=== PATIENT | male | born 1960 | race Caucasian/White ===

== ENCOUNTER 2021-05-21 11:00 | Outpatient (REF) | payer OTHER, SELFPAY ==
[2021-05-21 11:53] LABS: Binax Internal Control QC Valid; Binax Now Covid-19 Ag Negative (Negative)
== END 2021-05-21 11:01 | disposition home or self-care (01) ==
LOC: HO.HMGCLDS 11:00
PROVIDERS: Visit Provider Physician Assistant Medical
DX: Z13.89 Encounter for screening for other disorder (principal)

== ENCOUNTER 2022-04-13 18:16 | Outpatient (REF) | payer OTHER, SELFPAY ==
[2022-04-13 20:10] LABS: Influenza A PCR NEGATIVE (Negative); Influenza B PCR NEGATIVE (Negative); Resp Syncy Virus RNA Qual PCR NEGATIVE (Negative); SARS COV2 PCR INHOUSE NEGATIVE (Negative)
== END 2022-04-13 18:17 | disposition home or self-care (01) ==
LOC: HO.LNP 18:16
PROVIDERS: Visit Provider Internal Medicine
DX: J06.9 Acute upper respiratory infection, unspecified (principal); Z20.822 Contact with and (suspected) exposure to COVID-19
CPT/HCPCS: 0241U; U0003; U0005

== ENCOUNTER 2022-06-09 11:17 | Outpatient (REF) | payer OTHER, SELFPAY ==
[2022-06-09 12:38] LABS: Influenza A PCR NEGATIVE (Negative); Influenza B PCR NEGATIVE (Negative); Resp Syncy Virus RNA Qual PCR NEGATIVE (Negative); SARS COV2 PCR INHOUSE NEGATIVE (Negative)
== END 2022-06-09 11:18 | disposition home or self-care (01) ==
LOC: HO.LNP 11:17
PROVIDERS: Visit Provider Internal Medicine
DX: R43.9 Unspecified disturbances of smell and taste (principal); Z20.822 Contact with and (suspected) exposure to COVID-19
CPT/HCPCS: 0241U

== ENCOUNTER 2022-11-18 05:54 | Emergency (ER) | payer OTHER, SELFPAY ==
--- NOTE | ~2022-11-18 | XR_ITS ---
EXAMINATION: XR CHEST CLINICAL INFORMATION: Chest pain COMPARISON: Chest x-rays of 07/20/2018 TECHNIQUE: 2 views of the chest were obtained. FINDINGS: Cardiomediastinal silhouette is stable and normal. Lungs are symmetrically well expanded. No focal consolidation, changes of congestion is seen. No pneumothorax. Changes of diffuse idiopathic skeletal hyperostosis are seen in the spine. XR/XR chest 2V IMPRESSION: No acute pulmonary process.
[2022-11-18 06:00] VITALS: BP 155/83; PULSE 97; RESP 18; TEMP 36.3; O2SAT 97; BMI 36.9
--- NOTE | 2022-11-18 06:05 | ECG_ITS ---
Test Reason : CHEST PAIN Blood Pressure : / mmHG Vent. Rate : 074 BPM Atrial Rate : 074 BPM P-R Int : 178 ms QRS Dur : 086 ms QT Int : 368 ms P-R-T Axes : 036 071 040 degrees QTc Int : 408 ms Normal sinus rhythm Normal ECG No previous ECGs available Referred By: Generic ED Physician Electronically Signed By:MINDI MCKENNA MD
[2022-11-18 06:32] LABS: MANUAL DIFF FLAG NO
[2022-11-18 06:34] LABS: Basophils Percent Auto 0.4 % (0-2); Eosinophils Percent Auto 0.8 % (0-4); Hemoglobin 15.8 g/dl (14.0-18.0); Imm Gran Abs Auto 0.02 X10*3/uL (0.00-0.03); Imm Gran Pct Auto 0.4 % (0.0-0.4); Lymphocytes Absolute Auto 1.7 X10*3/uL (1.2-4.9); Lymphocytes Percent Auto 34.5 % (20-40); Mean Corpuscular HGB Conc 34.3 g/dl (31.0-36.0); Mean Corpuscular Hemoglobin 29.6 pg (27.0-33.0); Mean Corpuscular Volume 86.1 fL (80.0-98.0); Mean Platelet Volume 8.5 fL (9.4-12.4); Monocytes Absolute Auto 0.3 X10*3/uL (0.1-1.2); Monocytes Percent Auto 6.9 % (2-11); Neutrophils Absolute Auto 2.8 x10*3/uL (2.0-8.3); Platelet Count 203 X10*3/uL (160-400); Red Blood Count 5.34 X10*6/uL (4.60-5.80); Red Cell Distribution Width 13.2 % (11.0-16.0)
--- NOTE | 2022-11-18 06:39 | ED.CHESTPAIN ---
HPI - Chest Pain General Chief Complaint: Chest Pain Stated Complaint: migraine Time Seen by Provider: 11/18/22 06:35 Source: patient Mode of arrival: ambulatory Limitations: no limitations History of Present Illness HPI narrative: Patient is a 62 year old assigned male at with a history of pre-diabetes presenting to the emergency department today with right anterior chest pain and feeling generally unwell. Patient states that for the last day he has had right sided chest pain and has felt generally unwell. Patient denies any dizziness, lightheadedness, abdominal pain, nausea, vomiting, fever, chills, blurry vision, double vision, loss of vision, difficulty breathing, shortness of breath, back pain, night sweats, pain with urination, increased urinary frequency, increased urinary urgency, blood in his urine or stool, syncope or a near syncopal episode, recent trauma or falls, bowel incontinence, bladder incontinence, bowel retention, bladder retention, or any other complaints at this time. MD complaint: chest pain Onset (ago): day(s) (1) Pain radiation: none Severity: mild Pain scale (0-10): 2 Relieving factors: nothing Exacerbating factors: nothing Treatment prior to arrival: none Related Data Home Medications Medication Instructions Recorded Confirmed zinc acetate 25 mg (zinc) capsule 50 mg PO DAILY 06/09/22 Previous Rx's Medication Instructions Recorded oseltamivir 75 mg capsule (Tamiflu) 75 mg PO BID 5 days #10 caps 06/09/22 naproxen 500 mg tablet 500 mg PO BID PRN pain 14 days #30 09/18/22 tabs Allergies Allergy/AdvReac Type Severity Reaction Status Date / Time No Known Allergies Allergy Verified 09/18/22 10:12 Review of Systems Constitutional: Constitutional: Reports no additional constitutional complaints, Denies chills, Denies fever(s) and Denies night sweats Eyes: Eyes: Reports no additional eye complaints, Denies blurry vision, Denies change in vision, Denies diplopia, Denies eye discharge, Denies loss of vision and Denies eye pain ENT: Denies dizziness Cardiovascular: Cardiovascular: Reports no additional cardiovascular complaints, Reports chest pain, Denies lightheadedness, Denies Loss of Consciousness and Denies dyspnea Respiratory: Respiratory: Reports no additional respiratory complaints and Denies dyspnea Gastrointestinal: Gastrointestinal: Reports no additional gastrointestinal complaints, Denies abdominal pain, Denies melena, Denies hematochezia, Denies change in bowel habits and Denies change in stool character Genitourinary: Genitourinary: Reports no additional male genitourinary complaints, Denies hematuria, Denies oliguria, Denies difficulty urinating, Denies dysuria, Denies urinary frequency, Denies urinary hesitancy, Denies urinary incontinence and Denies urinary urgency Musculoskeletal: Musculoskeletal: Reports no additional musculoskeletal complaints, Denies numbness and Denies tingling Neurologic: Denies dizziness, Denies loss of vision, Denies numbness and Denies tingling Psychiatric: Psychiatric: Reports no additional psychiatric complaints Endocrine: Endocrine: Reports no additional endocrine complaints Hematologic/Lymphatic: Hematologic/Lymphatic: Reports no additional hematologic/lymphatic complaints Allergic/Immunologic: Allergic/Immunologic: Reports no additional allergic/immunologic complaints PMFSH Past Medical History Attestation statement: The following information was validated with the patient. Source: old records reviewed and nursing notes reviewed Social History Social History Smoked in Last 30 Days: No Advance Directives: No Advance Directives Information Provided: Yes Physical Exam Vital Signs: Vital Signs: Last Vital Signs Temp 98.3 F 11/18/22 06:57 Pulse 70 11/18/22 06:57 Resp 16 11/18/22 06:57 BP 141/84 H 11/18/22 06:57 Pulse Ox 95 11/18/22 06:57 O2 Del Method Room Air 11/18/22 06:57 BMI result Body Mass Index 36.9 Const: General: cooperative, no acute distress, alert and awake Nutritional Appearance: well nourished Orientation/consciousness: patient oriented x3 Limitations: no limitations HEENT: Head: Yes normal to inspection and Yes atraumatic Ears: hearing grossly normal bilaterally and external ears normal General nose exam: Normal external nose present, no nasal discharge noted and no epistaxis Face and sinus: Yes normal facial exam, No abrasion and No laceration Mouth: Normal oral and palatal mucosa present, no drooling and no muffled voice Eyes: General: appearance normal, both eyes and all related structures Periorbital: periorbital findings normal Eyelids: Yes eyelids normal Conjunctivae: conjunctivae normal Pupils: Equal, round and reactive pupils present EOM: EOMs intact bilaterally Neck: Neck: Yes normal visual inspection, Yes full ROM and Yes no lymphadenopathy Chest: Chest palpation & inspection: normal inspection of the chest Resp: Effort & Inspection: normal respiratory effort and able to speak in complete sentences Auscultation: clear to auscultation bilaterally Cardio: Rate: regular rate Rhythm: regular rhythm GI: Inspection: Yes normal to inspection Palpation (GI): Soft to palpation, not firm, nontender and no guarding Neuro: General: patient oriented x3 and moves all extremities Cranial nerves: Yes Equal, round and reactive pupils present Cognition (Neuro): normal cognition Motor exam (neuro): 5/5 motor strength present throughout Sensory Exam: Normal double simultaneous stimulation for sensation Coordination: [id number] test normal Extrem: General: Yes normal to inspection, Yes full ROM and Yes capillary refill normal Psych: Appearance: grossly normal Mental Status: mental status grossly normal Affect: normal affect Attitude: cooperative Thought process: Normal thought process present Thought content: Normal thought content present Insight: Good insight present (Psych) Medications Administered Discontinued Medications Generic Name Dose Route Start Last Admin Trade Name Freq PRN Reason Stop Dose Admin Sodium Chloride 1,000 mls @ 999 mls/hr 11/18/22 07:15 11/18/22 07:59 Ns IV 11/18/22 08:15 999 mls/hr .Q1H1M CORY Administration Medical Decision Making Medical Decision Making [facility] Narrative: Patient is a 62 year old assigned male at with a history of pre-diabetes presenting to the emergency department today with right sided chest wall pain. Patient's physical exam was unremarkable. Patient's blood work showed a mildly elevated lipase of 94. The rest of the patient's labs were grossly normal. Patient's EKG was unremarkable. Patient's chest x-ray showed no acute process. I explained my physical exam findings as well as all test results to the patient. I answered all questions asked by the patient. Patient received IV fluids while in the department which he stated helped his symptoms significantly. I stressed the importance of the patient taking his medication as prescribed. I stressed the importance of the patient following up with his primary care provider. I stressed the importance of the patient returning to the emergency department immediately if his symptoms were to worsen or if he were to develop any dizziness, shortness of breath, difficulty breathing, chest pain, blurry vision, loss of vision, nausea, vomiting, abdominal pain, fever, chills, back pain, or any other complaints. Patient verbalized agreement and understanding with this treatment plan and discharge. Differential Diagnosis Differential Diagnoses: The differential diagnosis associated with the presentation includes NSTEMI STEMI Anxiety Pancreatitis GERD Admission/Observation Consideration of admission/observation: Escalation of care including admission/observation considered Patient would have been admitted to the hospital had his work up had any findings where hospital admission was appropriate and his clinical presentation warranted hospital admission. Lab Data [facility] Lab Attestation statement: I reviewed the patient's lab results. My interpretation of these lab results are in the [facility] portion of this chart. 11/18/22 06:27 11/18/22 06:27 Labs: Lab Results 11/18/22 11/18/22 11/18/22 Range/Units 06:27 06:27 06:27 WBC 5.0 (4.8-10.8) X10*3/uL RBC 5.34 (4.60-5.80) X10*6/uL Hgb 15.8 (14.0-18.0) g/dl Hct 46.0 (42.0-52.0) % MCV 86.1 (80.0-98.0) fL MCH 29.6 (27.0-33.0) pg MCHC 34.3 (31.0-36.0) g/dl RDW 13.2 (11.0-16.0) % Plt Count 203 (160-400) X10*3/uL MPV 8.5 L (9.4-12.4) fL Immature Gran % (Auto) 0.4 (0.0-0.4) % Neut % (Auto) 57.0 (45-73) % Lymph % (Auto) 34.5 (20-40) % [place] % (Auto) 6.9 (2-11) % Eos % (Auto) 0.8 (0-4) % Baso % (Auto) 0.4 (0-2) % Lymph # (Auto) 1.7 (1.2-4.9) X10*3/uL [place] # (Auto) 0.3 (0.1-1.2) X10*3/uL Eos # (Auto) 0.0 (0.0-0.4) X10*3/uL Baso # (Auto) 0.0 (0.0-0.2) X10*3/uL Abs Immat Gran (auto) 0.02 (0.00-0.03) X10*3/uL Absolute Neuts (auto) 2.8 (2.0-8.3) x10*3/uL Absolute Nucleated RBC 0.000 (0.0-0.012) X10*3/uL Nucleated RBC % (auto) 0.0 (0.0-0.2) /100WBC Sodium 136 (135-145) mmol/L Potassium 4.4 (3.3-5.1) mmol/L Chloride 105 (96-108) mmol/L Carbon Dioxide 25 (22-29) mmol/L Anion Gap 10 L (12-20) BUN 13 (9-16) mg/dL Creatinine 0.77 (0.5-1.4) mg/dL Estim Creat Clear Calc 121.1 Estimated GFR > 60 Random Glucose 188 H (60-115) mg/dL Calcium 9.2 (8.4-10.2) mg/dL Total Bilirubin 1.0 (0.0-1.0) mg/dL Direct Bilirubin 0.2 (0.0-0.5) mg/dL AST 15 (5-37) U/L ALT 24 (0-40) U/L Alkaline Phosphatase 63 (39-117) U/L Troponin I High Sens < 2.7 (<3.5-35.0) ng/L Total Protein 6.9 (6.5-8.0) g/dL Albumin 4.2 (3.5-5.0) g/dL Lipase 94 H (8-78) U/L Independent Interpretation I performed an independent interpretation of an: EKG and Plain X-Ray Interpretation: My interpretation is in agreement with the radiologist's impression of this imaging study. EXAMINATION: XR CHEST CLINICAL INFORMATION: Chest pain COMPARISON: Chest x-rays of 07/20/2018 TECHNIQUE: 2 views of the chest were obtained. FINDINGS: Cardiomediastinal silhouette is stable and normal. Lungs are symmetrically well expanded. No focal consolidation, changes of congestion is seen. No pneumothorax. Changes of diffuse idiopathic skeletal hyperostosis are seen in the spine. XR/XR chest 2V IMPRESSION: No acute pulmonary process. Dictated By: Richard Daniels MD Signed By: Electronically signed by Richard Daniels MD 11/18/22 0757 Vent. Rate: 074 BPM ? ? Atrial Rate: 074 BPM P-R Int : 178 ms? ? QRS Dur: 086 ms QT Int: 368 ms ? ? ? P-R-T Axes: 036 071 040 degrees QTc Int: 408 ms ? Normal sinus rhythm Normal ECG No previous ECGs available DD/ 0610 Radiology Impression Discussion of test interpretation with radiology: I have reviewed the radiologist's reading. Discharge Plan Discharge Clinical Impression: Pancreatitis, Atypical chest pain Patient Disposition: Home, Self-Care Instructions: Chest Pain (DC), Pancreatitis (ED) Additional Instructions: Follow up with your primary care provider. Return to the emergency department immediately if your symptoms worsen or if you develop any dizziness, shortness of breath, difficulty breathing, chest pain, blurry vision, loss of vision, nausea, vomiting, abdominal pain, fever, chills, back pain, or any other complaints. Prescriptions: No Action zinc acetate 25 mg (zinc) capsule 50 mg PO DAILY oseltamivir [Tamiflu] 75 mg capsule 75 mg PO BID 5 Days Qty: 10 0RF naproxen 500 mg tablet 500 mg PO BID PRN (Reason: pain) 14 Days Qty: 30 0RF Referrals: [facility] Family Medicine [Provider Group] (Call to establish and follow up with a primary care provider. If you already have a primary care provider, please follow up with them.) [facility] Primary Care, James [Provider Group] (Call to establish and follow up with a primary care provider. If you already have a primary care provider, please follow up with them.) [facility] Primary Care,Kae [Provider Group] (Call to establish and follow up with a primary care provider. If you already have a primary care provider, please follow up with them.) Stand Alone Forms: Work/School Release Print Language: Albanian
[2022-11-18 06:46] LABS: Anion Gap 10 (12-20); Blood Urea Nitrogen 13 mg/dL (9-16); Calcium 9.2 mg/dL (8.4-10.2); Carbon Dioxide 25 mmol/L (22-29); Chloride 105 mmol/L (96-108); Creatinine Clr Calc Pharmacy 121.1; Estimated Glomerular Filt Rate > 60; Glucose Random 188 mg/dL (60-115); Potassium 4.4 mmol/L (3.3-5.1); Sodium 136 mmol/L (135-145)
[2022-11-18 06:57] VITALS: BP 141/84; PULSE 70; RESP 16; TEMP 36.8; O2SAT 95
[2022-11-18 07:03] LABS: Alanine Aminotransferase 24 U/L (0-40); Albumin Level 4.2 g/dL (3.5-5.0); Alkaline Phosphatase 63 U/L (39-117); Aspartate Amino Transferase 15 U/L (5-37); Bilirubin Direct 0.2 mg/dL (0.0-0.5); Lipase 94 U/L (8-78); Total Protein 6.9 g/dL (6.5-8.0); Troponin-I High Sensitivity < 2.7 ng/L (<3.5-35.0)
--- NOTE | 2022-11-18 07:04 | PC.NURSE ---
pt a&ox3, respirations equal and unlabored with clear bilateral lung sounds. normal sinus on tele. pt reporting right sided pressure in the chest that is radiating into his right upper back that has been going on for two days. pt reports some current stressors in his household.
[2022-11-18] MEDS: 0.9 % Sodium Chloride 1,000 ML 999 ML IV (07:59)
== END 2022-11-18 08:45 | disposition home or self-care (01) ==
PROVIDERS: Physician Assistant Medical; Emergency Provider Emergency Medicine Emergency Medical Services
DX: K85.90 Acute pancreatitis without necrosis or infection, unspecified (principal); R07.89 Other chest pain; R73.03 Prediabetes; Z79.899 Other long term (current) drug therapy
CPT/HCPCS: 36415; 71046; 80048; 80076; 83690; 84484; 85025; 93005; 99283; 99285

== ENCOUNTER → 2022-11-18 06:05 | Outpatient (BNV) | payer OTHER, SELFPAY | PROVIDERS: Emergency Provider Emergency Medicine Emergency Medical Services; Visit Provider Internal Medicine Cardiovascular Disease | DX: R07.9 Chest pain, unspecified (principal) | CPT/HCPCS: 93010 ==

== ENCOUNTER 2023-02-07 11:36 | Outpatient (AMB) | payer OTHER, SELFPAY ==
[2023-02-07 12:24] VITALS: BP 136/74; PULSE 80; TEMP 36.8; O2SAT 97; BMI 35.4
--- NOTE | 2023-02-07 12:24 | MHC.OFFWIV ---
Intake Vital Signs 02/07/23 12:24 Height 5 ft 8 in Weight 105.687 kg BMI 35.4 BP 136/74 Blood Pressure Location Lt brachial Position Sitting Pulse 80 Pulse Source Pulse Oximeter Temp 98.2 F Temp Source Temporal Artery Scan Pulse Oximetry (%) 97 Intake Visit Reasons: EP Cold Symptoms (masked) Intake Note: pt is here for c/o chest congestion, cough, ear pain, fatigue Patient Tobacco Use Status: Never used Tobacco Allergies No Known Allergies Allergy (Verified 02/07/23 12:25) Do you need a note to return to daycare/school/sports/work: Yes HPI EP Cold Symptoms (masked) HPI Details Patient presents on day 4 of sudden onset chills, body aches, congestion, cough, sore throat. He denies chest pain, shortness of breath, GI symptoms. He took a home COVID test today which was negative. He denies sick contacts at home. [facility] Social History Patient Tobacco Use Status: Never used Tobacco Review of Systems Const Reports as per HPI and Reports no additional complaints Eyes Reports no additional complaints ENT Reports no additional complaints and Reports as per HPI Card Reports as per HPI and Reports no additional complaints Resp Reports as per HPI and Reports no additional complaints GI Reports as per HPI and Reports no additional complaints Musc Reports no additional complaints and Reports as per HPI Neuro Reports no additional complaints and Reports as per HPI Physical Exam Vital Signs: Last Vital Signs Temp 98.2 F 02/07/23 12:24 Pulse 80 02/07/23 12:24 BP 136/74 02/07/23 12:24 Pulse Ox 97 02/07/23 12:24 BMI result Body Mass Index 35.4 Const General: cooperative, comfortable, no acute distress and tired appearing Orientation/consciousness: patient oriented x3 HEENT Ears: TM's normal bilaterally General nose exam: Abnormal mucous membranes and turbinates present erythematous and Nasal discharge present mucoid Face and sinus: Yes sinuses nontender Mouth: Normal oral and palatal mucosa present Throat: Yes uvula midline, Yes posterior oropharynx abnormal (Erythema) and Yes tonsils absent Neck Neck: Yes no lymphadenopathy Resp Effort & Inspection: normal respiratory effort Auscultation: clear to auscultation bilaterally Cardio Rate: regular rate Rhythm: regular rhythm Heart sounds: S1 normal heart sound present and S2 normal heart sound present Neuro General: patient oriented x3 Extrem General: Yes no pedal edema Results AMB Rapid Strep AMB Rapid Strep Negative Last Edit by Jey Bermudez CMA on 02/07/23 13:06 Assessment & Plan Assessment & Plan (1) Viral syndrome: Code(s): B34.9 - Viral infection, unspecified Plan: Advised patient symptoms are likely viral. I have collected a viral swab out will report results of helpful note to me for 2 days can return swab symptoms resolved. Reviewed self-care and symptomatic treatment. As advised viral symptoms can last 7-10 days return to clinic if symptoms worsen or do not improve. Orders: Orders SARS-CoV2/FLU/RSV Today B34.9 - Viral infection, unspecified AMB Rapid Strep Screen Today Z13.9 - Encounter for screening, unspecified Coding Level of Care Code Est Pt Level 3 (98764) Diagnoses Viral syndrome B34.9
== END 2023-02-07 13:26 | disposition home or self-care (01) ==
PROVIDERS: Visit Provider Physician Assistant
DX: J02.9 Acute pharyngitis, unspecified (principal); B34.9 Viral infection, unspecified
CPT/HCPCS: 87880; 99213

== ENCOUNTER 2023-02-07 13:05 | Outpatient (REF) | payer OTHER, SELFPAY ==
[2023-02-07 18:01] LABS: Influenza A PCR NEGATIVE (Negative); Influenza B PCR NEGATIVE (Negative); Resp Syncy Virus RNA Qual PCR NEGATIVE (Negative); SARS COV2 PCR INHOUSE NEGATIVE (Negative)
== END 2023-02-07 13:06 | disposition home or self-care (01) ==
LOC: HO.LAB 13:05
PROVIDERS: Visit Provider Physician Assistant
DX: Z20.822 Contact with and (suspected) exposure to COVID-19 (principal)
CPT/HCPCS: 0241U

== ENCOUNTER 2023-07-27 10:39 | Outpatient (AMB) | payer OTHER, SELFPAY ==
[2023-07-27 10:52] VITALS: BP 130/80; PULSE 103; TEMP 36.8; O2SAT 95; BMI 36.2
--- NOTE | 2023-07-27 10:52 | MHC.OFFWIV ---
Intake Vital Signs 07/27/23 10:52 Height 5 ft 8 in Weight 238 lb BMI 36.2 BP 130/80 Blood Pressure Location Lt brachial Position Sitting Pulse 103 H Pulse Source Pulse Oximeter Temp 98.2 F Temp Source Temporal Artery Scan Pulse Oximetry (%) 95 Oxygen Delivery Method Room Air Intake Visit Reasons: EP sore throat ears cough congestion (lobby) Intake Note: pt is here today for sore throat ear cough congestion started tuesday Patient Tobacco Use Status: Never used Tobacco Allergies No Known Allergies Allergy (Verified 07/27/23 10:56) Do you need a note to return to daycare/school/sports/work: Yes HPI HPI Comments History of Present Illness Details 63 y/o male patient who presents to walk in clinic with c/o cough, chest congestion, headaches, nasal congestion since Tuesday. Pt has been taking OTC medications with some relief. Denies fevers, chills, nausea or vomiting. Denies any recent sick contacts. [facility] Social History Patient Tobacco Use Status: Never used Tobacco Review of Systems Const All systems reviewed & are unremarkable except as noted in HPI and below Physical Exam Vital Signs: Last Vital Signs Temp 98.2 F 07/27/23 10:52 Pulse 103 H 07/27/23 10:52 BP 130/80 07/27/23 10:52 Pulse Ox 95 07/27/23 10:52 Oxygen Delivery Method Room Air 07/27/23 10:52 BMI result Body Mass Index 36.2 Const General: comfortable and no acute distress Nutritional Appearance: obese Orientation/consciousness: patient oriented x3 HEENT Head: Yes normocephalic Ears: external ears normal and TM's normal bilaterally General nose exam: Abnormal mucous membranes and turbinates present boggy and erythematous Face and sinus: Yes sinuses nontender Throat: Yes posterior oropharynx normal Resp Effort & Inspection: normal respiratory effort and able to speak in complete sentences Auscultation: clear to auscultation bilaterally, no crackles, no rales, no rhonchi and no wheezes Cardio Rate: regular rate Rhythm: regular rhythm Neuro General: patient oriented x3 and moves all extremities Psych Speech and movement: Normal speech and movement present Results AMB Rapid Strep AMB Rapid Strep Negative Last Edit by Jacoby Perkins on 07/27/23 11:21 Results Reviewed Results Reviewed: Laboratory Last Values Strep Scn Rapid Clinic Negative 07/27/23 11:21 Assessment & Plan Assessment & Plan (1) Upper respiratory tract infection: Code(s): J06.9 - Acute upper respiratory infection, unspecified Qualifiers: URI type: unspecified viral URI Qualified Code(s): J06.9 - Acute upper respiratory infection, unspecified Plan: - Rest and hydrate well with warm fluids - Acetaminophen for pain relief - OTC cold remedies. Orders: Orders SARS-CoV2/FLU/RSV Today J06.9 - Acute upper respiratory infection, unspecified Coding Level of Care Code Est Pt Level 3 (27023) Diagnoses Viral upper respiratory tract infection J06.9 URI type: unspecified viral URI Time Spent (min) 15
== END 2023-07-27 13:31 | disposition home or self-care (01) ==
PROVIDERS: Visit Provider Nurse Practitioner Family
DX: J06.9 Acute upper respiratory infection, unspecified (principal)
CPT/HCPCS: 99213

== ENCOUNTER 2023-07-27 11:06 | Outpatient (REF) | payer OTHER, SELFPAY ==
[2023-07-27 16:38] LABS: Influenza A PCR NEGATIVE (Negative); Influenza B PCR NEGATIVE (Negative); Resp Syncy Virus RNA Qual PCR NEGATIVE (Negative); SARS COV2 PCR INHOUSE NEGATIVE (Negative)
== END 2023-07-27 11:07 | disposition home or self-care (01) ==
LOC: HO.LAB 11:06
PROVIDERS: Visit Provider Nurse Practitioner Family
DX: Z11.52 Encounter for screening for COVID-19 (principal); Z20.822 Contact with and (suspected) exposure to COVID-19; J06.9 Acute upper respiratory infection, unspecified
CPT/HCPCS: 0241U

== ENCOUNTER 2024-03-21 14:11 | Outpatient (AMB) | payer OTHER, SELFPAY ==
[2024-03-21 14:21] VITALS: BP 122/80; PULSE 83; O2SAT 97; BMI 36.9
--- NOTE | 2024-03-21 14:21 | MHC.PC.OV ---
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 Pt is a diabetic, not currently on any medications. Due for A1C and microalbumin, will order. Denies polyuria, polydipsia, and neuropathy. Pt denies any signs and symptoms of hypoglycemia and does know how to correct it. Pt does not check his blood sugar at home. He does report tenderness to his bilat feet. He is seeing podiatry (arthritis). Pt c/o palpitations. He reports that these do not last long. Will do an EKG in office. Will also order echo and stress test. Denies chest pain, shortness of breath, and dizziness. refused vaccinations. [facility] Surgical History No pertinent past surgical history Family History Mother CHF (congestive heart failure) Father No problems noted. Son Substance abuse Social History Alcohol intake: never Patient Tobacco Use Status: Never used Tobacco Cognitive needs: No Hearing needs: No Vision needs: No Questionnaire PHQ-9 Over the last 2 weeks, how often have you been bothered by any of the following problems? 1. Little interest or pleasure in doing things: not at all 2. Feeling down, depressed, or hopeless: not at all 3. Trouble falling or staying asleep, or sleeping too much: not at all 4. Feeling tired or having little energy: not at all 5. Poor appetite or overeating: not at all 6. Feeling bad about yourself - or that you are a failure or have let yourself or your family down: not at all 7. Trouble concentrating on things, such as reading the newspaper or watching television: not at all 8. Moving or speaking so slowly that other people could have noticed. Or the opposite - being so fidgety or restless that you have been moving around a lot more than usual: not at all 9. Thoughts that you would be better off or of hurting yourself in some way: not at all Total score: 0 Depression Screening Interpretation: Negative Depression Screening Done: Yes 21913 - PHQ-9 Billing: Yes Source: Developed by Drs. Ray Abdi, Dena Mejia, Chacorta Ding and colleagues, with an educational hay from [employer]. Thrive Questionnaire Date Thrive assessed: 03/21/24 I am a: Patient What is your living situation today?: I have a steady place to live Within the past 12 months, did the food you bought not last and you didn't have the money to get more?: I choose not to answer this question Within the past 12 months, did you worry whether your food would run out before you got money to buy more?: Never true Do you have trouble paying for medicines?: No Do you have trouble getting transportation to medical appointments?: No Do you have trouble paying your heating and electricity bill?: No Do you have trouble taking care of your child, family member or friend?: No Do you have trouble with day-to-day activities such as bathing, preparing meals, shopping, managing finances, etc.?: No Are you currently unemployed and looking for a job?: No Are you interested in more education?: No Please select the resources that you would like help with: None Currently or been in a relationship where the following occur: No concerns reported THRIVE Score: 0 AUDIT C Alcohol Use Questionnaire (AUDIT-C) 1. How often do you have a drink containing alcohol?: Never 3. How often do you have six or more drinks on one occasion?: Never Total Score: 0 Score Reviewed/Action Taken: Yes MARY-7 AMB Questionnaire MARY-7 Date MARY - 7 assessed: 03/21/24 Feeling nervous, anxious, or on edge: 3 = Nearly every day Not being able to stop or control worryin = Not at all Worrying too much about different things: 0 = Not at all Trouble relaxin = Not at all Being so restless that it is hard to sit still: 0 = Not at all Becoming easily annoyed or irritable: 0 = Not at all Feeling afraid as if something awful might happen: 0 = Not at all Total MARY-7 score (0-4 normal; 5-9 mild; 10-14 moderate; 15-21 severe): 3 Source: Developed by Drs. Ray Abdi, Dena Mejia, Chacorta Ding and colleagues, with an educational hay from [employer]. MARY-7 Assessment Billing MARY-7 Assessment Tool: MARY-7 Assessment 49060 Review of Systems Const Reports as per HPI Physical exam (Primary Care) Vital Signs: Last Vital Signs Pulse 83 03/21/24 14:21 BP 122/80 03/21/24 14:21 Pulse Ox 97 03/21/24 14:21 BMI result Body Mass Index 36.9 Tobacco/Smoking Status: Tobacco use Status Tobacco use date assessed 03/21/24 03/21/24 14:26 Patient Tobacco Use Status Never used Tobacco 03/21/24 14:26 PHQ-9: PHQ-9 Score PHQ-9: Total score 0 03/21/24 14:37 Depression Screening Interpretation: Negative Thrive Assessment: Date of Thrive Assessment Date Thrive assessed 03/21/24 03/21/24 14:26 Currently or been in a relationship where the following occur: No concerns reported Const General: cooperative Nutritional Appearance: obese Orientation/consciousness: patient oriented x3 Resp Effort & Inspection: normal respiratory effort Auscultation: clear to auscultation bilaterally Cardio Rate: regular rate Rhythm: regular rhythm Heart sounds: S1 normal heart sound present and S2 normal heart sound present GI Other: small umbilical hernia Other: refused MELY Skin Other: macular slightly raised birthmark to posterior distal right calf, slightly raised lesion to proximal right calf, no tenderness with palpation Neuro General: patient oriented x3 Extrem Other: bilat feet: + sensation with use of monofilament, feet intact, hemosiderin staining to BLE Psych Appearance: grossly normal Mental Status: mental status grossly normal Speech and movement: Normal speech and movement present Affect: normal affect Attitude: cooperative Thought process: Normal thought process present Thought content: Normal thought content present Insight: Good insight present (Psych) Judgement: Good judgement present (Psych) Coding Level of Care Code New Pt Level 3 (40532) Diagnoses Diabetes E11.9 Screening for prostate cancer Z12.5 Vitamin D deficiency E55.9 Palpitations R00.2 Additional Codes MARY-7 Assessment Billing - MARY-7 Assessment Tool: MARY-7 Assessment 72308 ([id number]) PHQ-9 - 17607 - PHQ-9 Billing: Yes ([id number]) Assessment & Plan Assessment & Plan (1) Diabetes: Code(s): E11.9 - Type 2 diabetes mellitus without complications Category: Medical Plan: Labs ordered (2) Screening for prostate cancer: Code(s): Z12.5 - Encounter for screening for malignant neoplasm of prostate Category: Medical Plan: PSA ordered (3) Vitamin D deficiency: Code(s): E55.9 - Vitamin D deficiency, unspecified Category: Medical Plan: Vitamin D ordered (4) Palpitations: Code(s): R00.2 - Palpitations Category: Medical Plan: EKG done in office, echo and stress test ordered Plan The patient agreed to the use of a medical affairs specialist for this encounter. Scribed for SUSANA Roland by Lien Fabian medical affairs specialist, on 03/21/2024 at 14:35 EST. Orders: Orders UA CC w/rflx Micro + Cult Today E11.9 - Type 2 diabetes mellitus without complications Microalbumin, Random (w Creat) Today E11.9 - Type 2 diabetes mellitus without complications Vitamin D 25-OH Total Today E55.9 - Vitamin D deficiency, unspecified CA stress test Today R00.2 - Palpitations CA lexiscan stress w radha Today R00.2 - Palpitations Complete Blood Count Auto Diff Today E11.9 - Type 2 diabetes mellitus without complications Comprehensive [place]. Panel Fast Today E11.9 - Type 2 diabetes mellitus without complications TSH reflex Free T4 Today E11.9 - Type 2 diabetes mellitus without complications Lipid Panel Today E11.9 - Type 2 diabetes mellitus without complications Hemoglobin A1c Today E11.9 - Type 2 diabetes mellitus without complications Prostate Specific Antigen Scr Today Z12.5 - Encounter for screening for malignant neoplasm of prostate AMB EKG-In Office Today R00.2 - Palpitations CA echo transthoracic complete Today R00.2 - Palpitations
== END 2024-03-21 15:28 | disposition home or self-care (01) ==
PROVIDERS: Visit Provider Nurse Practitioner Family
DX: E11.9 Type 2 diabetes mellitus without complications (principal); Z12.5 Encounter for screening for malignant neoplasm of prostate; E55.9 Vitamin D deficiency, unspecified; R00.2 Palpitations

== ENCOUNTER → 2024-03-21 14:11 | Outpatient (BNVA) | payer OTHER, SELFPAY | PROVIDERS: Visit Provider Nurse Practitioner Family | DX: E11.9 Type 2 diabetes mellitus without complications (principal); E55.9 Vitamin D deficiency, unspecified; R00.2 Palpitations | CPT/HCPCS: 96127 ==

== ENCOUNTER 2024-03-24 07:03 | Outpatient (REF) | payer OTHER, SELFPAY ==
[2024-03-24 11:12] LABS: MANUAL DIFF FLAG NO
[2024-03-24 11:27] LABS: Basophils Percent Auto 0.6 % (0-2); Eosinophils Absolute Auto 0.1 X10*3/uL (0.0-0.4); Eosinophils Percent Auto 1.3 % (0-4); Hematocrit 47.6 % (42.0-52.0); Hemoglobin 16.3 g/dl (14.0-18.0); Imm Gran Abs Auto 0.01 X10*3/uL (0.00-0.03); Imm Gran Pct Auto 0.2 % (0.0-0.4); Lymphocytes Absolute Auto 2.1 X10*3/uL (1.2-4.9); Lymphocytes Percent Auto 43.4 % (20-40); Mean Corpuscular HGB Conc 34.2 g/dl (31.0-36.0); Mean Corpuscular Hemoglobin 29.7 pg (27.0-33.0); Mean Corpuscular Volume 86.9 fL (80.0-98.0); Mean Platelet Volume 9.1 fL (9.4-12.4); Monocytes Absolute Auto 0.4 X10*3/uL (0.1-1.2); Monocytes Percent Auto 7.6 % (2-11); Neutrophils Absolute Auto 2.2 x10*3/uL (2.0-8.3); Neutrophils Percent Auto 46.9 % (45-73); Platelet Count 229 X10*3/uL (160-400); Red Blood Count 5.48 X10*6/uL (4.60-5.80); Red Cell Distribution Width 13.1 % (11.0-16.0); White Blood Count 4.7 X10*3/uL (4.8-10.8)
[2024-03-24 11:33] LABS: Estimated Average Glucose 148 mg/dL; Hemoglobin A1C 215.4914 umol/L; Hemoglobin A1c % 6.8 % (<6.0); Total Hemoglobin (HGBA1C) 4210.1344 umol/L
[2024-03-24 11:45] LABS: Appearance Urine Cloudy; Color Urine Yellow; Glucose Urine UA Negative (Negative); Leukocyte Esterase Urine Negative (Negative); Nitrite Urine Negative (Negative); PH 5.5 (5.0-9.0); UMIC TRIGGER UACC YES; Urine Blood Negative (Negative); Urine Ketones Negative (Negative); Urine Protein 100 (2+) mg/dL (Neg-Trace)
[2024-03-24 11:48] LABS: Bacteria Urine None Seen (None Seen); Hyaline Casts Urine 0-2 /LPF (0-2); RBC Urine 0-2 /HPF (0-2); Squamous Epithelial Cell Urine 0-2 /HPF (0-2); WBC Urine 0-5 /HPF (0-5)
[2024-03-24 11:59] LABS: Prostate Specific Antigen Scr 3.59 ng/mL (<0.05-4.0)
[2024-03-24 12:19] LABS: Creatinine Urine 139.71 mg/dL; Microalbum/Creatinine Ratio Ur 262.6 ug/mg cr (<30)
[2024-03-24 12:20] LABS: Alanine Aminotransferase 36 U/L (0-40); Albumin Level 4.3 g/dL (3.5-5.0); Alkaline Phosphatase 61 U/L (39-117); Anion Gap 11 (12-20); Aspartate Amino Transferase 33 U/L (5-37); Bilirubin Total 1.1 mg/dL (0.0-1.0); Blood Urea Nitrogen 15 mg/dL (9-16); Calcium 9.4 mg/dL (8.4-10.2); Carbon Dioxide 26 mmol/L (22-29); Chloride 105 mmol/L (96-108); Cholesterol 214 mg/dL (<200); Estimated Glomerular Filt Rate > 60; Glucose Fasting 134 mg/dL (60-99); HDL Cholesterol 59 mg/dL (>40); LDL Cholesterol Calculated 121 mg/dL (<100); Potassium 4.3 mmol/L (3.3-5.1); Sodium 138 mmol/L (135-145); Total Protein 7.3 g/dL (6.5-8.0); Triglycerides 171 mg/dL (<150); Vitamin D 25-OH Total 37.5 ng/mL (>30)
== END 2024-03-24 07:04 | disposition home or self-care (01) ==
LOC: HO.HMGCLDS 07:03
PROVIDERS: PCP Nurse Practitioner Family; Visit Provider Nurse Practitioner Family
DX: E11.9 Type 2 diabetes mellitus without complications (principal); Z12.5 Encounter for screening for malignant neoplasm of prostate; E55.9 Vitamin D deficiency, unspecified
CPT/HCPCS: 36415; 80053; 80061; 81001; 82043; 82306; 82570; 83036; 84153; 84443; 85025

== ENCOUNTER → 2024-05-03 07:45 | Outpatient (REF) | payer OTHER, SELFPAY ==
--- NOTE | 2024-05-03 07:56 | CA_ITS ---
Transthoracic Echocardiogram Patient (Last, First, Middle): Brady Arzate J Gender: Male Date of : 1960 Age: 64 Procedure Date: 05/03/2024 Procedure Type: Transthoracic Echocardiogram Location: OP Height: 175.26 cm Weight: 108.86 kg BSA: 2.23 m2 Heart Rate: 96 bpm BP: 122 / 80 mmHg Performance Consultant: SB Referring MD: Atul Baldwin [facility] Catering Coordinator: Yovany Hernandez MD Symptoms: R00.2 - Palpitations Study Quality: Technically Difficult ECG Rhythm: Sinus Conclusions: - 1. Technically difficult study 2. Normal LV ejection fraction of 60 65% 3. Cardiac valvular Dopplers within normal limits Findings Procedure Information Contrast agent, definity, is being given per protocol without apparent complications. The quality of the study was technically difficult. The study quality is limited by patients body habitus and lung artifact. Left Ventricle Normal left ventricular size, thickness, and systolic function. The visually estimated ejection fraction is between 60-65%. Spectral Doppler is indicative of a normal filling pattern. Right Ventricle Normal right ventricular cavity size. Atria The left atrium is normal in size. Interatrial shunt cannot be excluded. The right atrium was not well visualized. Aortic Valve The aortic valve was not well visualized. There is no aortic valve stenosis. There is no aortic valve regurgitation. Mitral Valve The mitral valve was not well visualized. There is trace mitral valve regurgitation. There is no mitral valve stenosis. Tricuspid Valve The tricuspid valve was not well visualized. Great Vessels The pulmonary artery was not well visualized. There is no dilatation of the ascending aorta measuring 3.30 cm. Venous The inferior vena cava was not well visualized. Pericardium/Pleural The pericardium was not well visualized. Prior Study Comparison No prior study available for comparison. Measurements 2D Linear Measurements IVSd: 1.17 0.6-0.9/0.6-1.0 cm LVIDd: 4.40 3.9-5.3/4.2-5.9 cm LVIDd Index: 1.97 2.4-3.2/2.2-3.1 cm/m2 LVIDs: 2.64 2.0-3.6 cm LVPWd: 1.12 0.7-1.1 cm LA Diam: 3.60 2.7-3.8/3.0-4.0 cm LAIDs Index: 1.61 1.5-2.3 cm/m2 LV Mass: 224.06 67-162/88-224 g LV Mass Index: 100.48 43-95/49-115 g/m2 LVOT Diam: 2.30 3.0+(-)1.3 cm 2D Systolic Function EF 4C: 63.90 >55% EF 2C: 63.60 >55% EF BiP: 63.70 >55% Mitral Valve MV Pk E: 0.63 MV PK A: 0.60 MV Decel Time: 152.00 E/A: 1.10 E'Lateral: 6.42 E'Medial: 5.11 E/E' Med: 12.40 E/E' Lat: 9.90 PHT: 45.00 MVA PHT: 4.89 Decel Wheeler: 4.16 Aortic Valve AoV Pk Blayne: 1.10 AoV Pk Grad: 5.00 PHILLY: 3.33 LVOT LVOT Pk Blayne: 0.91 LVOT Mn Blayne: 0.61 LVOT VTI: 0.17 LVOT Pk Grad: 3.00 LVOT Mn Grad: 2.00 LVOT Diam: 2.30 LVOT Area: 4.15 Diastolic Function MV Pk E: 0.63 MV Pk A: 0.60 E/A: 1.10 E'Medial: 5.11 E/E' Med: 12.40 E' Laterial: 6.42 E/E' Lat: 9.90 Right Ventricle TAPSE (mm): 28.70 TVS' Blayne: 14.30 Tricuspid Valve RA Press: 3.00 Great Vessels Aorta Sinus of Valsalva: 2.80 2.0-3.5 cm Ao Asc: 3.30 2.1-3.4 cm Ao Arch: 2.90 Pulmonary Veins Pulm Vein S/D 1.20 Pulmonary Valve PV Pk Blayne: 1.38 Peak PV Grad: 8.00 Updated in Other Vendor System with Status of Final Yovany Hernandez MD electronically signed on 05/03/2024 3:36:00 PM with status of Final
== END ==
LOC: HO.CARD 07:45
PROVIDERS: PCP Nurse Practitioner Family; Visit Provider Nurse Practitioner Family
DX: R00.2 Palpitations (principal)
CPT/HCPCS: 93306; Q9957

== ENCOUNTER → 2024-05-03 07:56 | Outpatient (BNV) | payer OTHER, SELFPAY | PROVIDERS: PCP Nurse Practitioner Family; Visit Provider Internal Medicine Cardiovascular Disease | DX: R00.2 Palpitations (principal) | CPT/HCPCS: 93306 ==

== ENCOUNTER → 2024-06-28 07:46 | Outpatient (REF) | payer OTHER, SELFPAY ==
--- OUTSIDE RECORDS SUMMARY | 2024-06-28 07:49 | XMS_ITS | Patient Health Record ---
[facility] Address [address] [place] [address] Care Team Providers Care Production Counter Name Role Phone Jassi Molina MD Primary Care Provider Leonel Evans Unavailable [phone] Allergies Allergen (clinical drug ingredient) Drug/Non Drug Allergy documented on EMR Reaction Allergy Type Onset Date Status ibuprofen Advil Unknown Drug Allergy Active Aleve Unknown Drug Allergy Active Motrin Unknown Drug Allergy Active acetaminophen Tylenol Unknown Drug Allergy Act john aspirin Aspirin Unknown Drug Allergy Active Reason For Referral No Information Social History Tobacco Use: Social History Observation Description Date Details (start date - stop date) Light tobacco s moker NA - NA Tobacco Use/Smoking Question Answer Notes Are you a: light tobacco smoker Additional Findings: Tobacco Non-User Current no n-smoker Alcohol Screen Question Answer Notes Did you have a drink contain ing alcohol in the past year? Yes How often did you have a dri nk containing alcohol in the past year? 4 or more times a week (4 points) Points 4 Interpretation Positive Tobacco use other than smoking: Question Answer Notes Are you an other tobacco user? No Plan Of Treatment Pending Test Test Name Order Date X ray : Foot, left 3V 10/07/2022 X ray : Foot, right 3V 10/07/2022 X ray : Foot, right 3V 11/13/2021 Insurance Providers Payer Name Payer Address Payer Phone Subscriber Number Group Number Insured Name Patient Relationship to Insured Coverage Start Date Coverage End Date [employer] [address] [place] [address] [id number] Brady Arzate Self - patient is the insured Medical (General) History Medical History History ICD Code Arthritis Surgical History Surgery Date(Month/Year) L lymph node removed 11/12/21 arm surgery 2021
--- NOTE | 2024-06-28 07:50 | CA_ITS ---
Acquisition Time: 2024-06-28 08:14:17 Total Exercise Time: 00:05:41 Test Indications: Palpitations Medications: Protocol: RONNY Max HR: 146 BPM 92% of Pred: 157 BPM Max BP: 190/88 mmHG Max Work Load: 7.0 METS Exercise Stress Test with exercise 5 mins 41 secs of Ronny Protocol, achieving 91% MPHR, with reports of mild SOB, no chest discomfort, without any arrythmias, with normotensive response to exercise. Without any EKG changes meeting criteria for ischemia. In recovery, breathing returned to baseline. Nuclear images pending. Test reviewed with Dr. Evans. Referred By: Atul Baldwin Electronically Signed By: Rickie To
== END ==
LOC: HO.CARD 07:46
PROVIDERS: PCP Nurse Practitioner Family; Visit Provider Nurse Practitioner Family
DX: R00.2 Palpitations (principal)
CPT/HCPCS: 78452; 93017; A9500

== ENCOUNTER → 2024-06-28 07:50 | Outpatient (BNV) | payer OTHER, SELFPAY | PROVIDERS: PCP Nurse Practitioner Family | DX: R06.02 Shortness of breath (principal) | CPT/HCPCS: 78452; 93016; 93018 ==

== ENCOUNTER 2024-07-07 07:06 | Outpatient (REF) | payer OTHER, SELFPAY ==
--- OUTSIDE RECORDS SUMMARY | 2024-07-07 07:08 | XMS_ITS | Patient Health Record ---
Author Organization [facility] Address [address] [place] [address] Care Team Providers Care Shell Worker Name Role Phone Jassi Molina MD Primary Care Provider Leonel Evans Unavailable [phone] Allergies Allergen (clinical drug ingredient) Drug/Non Drug [...] Date Coverage End Date [employer] [address] [place] [address] [id number] Brady Arzate Self - patient is the insured Medical (General) History Medical History History ICD Code Arthritis Surgical History Surgery Date(Month/Year) L lymph node removed 11/12/21 arm surgery 2021
[2024-07-07 12:27] LABS: Alanine Aminotransferase 42 U/L (0-40); Albumin Level 4.3 g/dL (3.5-5.0); Alkaline Phosphatase 82 U/L (39-117); Anion Gap 14 (12-20); Aspartate Amino Transferase 33 U/L (5-37); Bilirubin Total 1.3 mg/dL (0.0-1.0); Blood Urea Nitrogen 14 mg/dL (9-16); Calcium 9.3 mg/dL (8.4-10.2); Carbon Dioxide 24 mmol/L (22-29); Chloride 106 mmol/L (96-108); Cholesterol 143 mg/dL (<200); Estimated Glomerular Filt Rate > 60; Glucose Fasting 132 mg/dL (60-99); HDL Cholesterol 51 mg/dL (>40); LDL Cholesterol Calculated 70 mg/dL (<100); Potassium 4.3 mmol/L (3.3-5.1); Sodium 140 mmol/L (135-145); Total Protein 7.8 g/dL (6.5-8.0); Triglycerides 112 mg/dL (<150)
== END 2024-07-07 07:07 | disposition home or self-care (01) ==
LOC: HO.HMGCLDS 07:06
PROVIDERS: PCP Nurse Practitioner Family; Visit Provider Nurse Practitioner Family
DX: E11.9 Type 2 diabetes mellitus without complications (principal)
CPT/HCPCS: 36415; 80053; 80061

== ENCOUNTER 2024-07-18 15:30 | Outpatient (AMB) | payer OTHER, SELFPAY ==
[2024-07-18 15:32] VITALS: BP 130/80; PULSE 90; TEMP 36.6; O2SAT 96; BMI 36.8
--- NOTE | 2024-07-18 15:32 | A.OFFPC_ITS ---
Vital Signs 07/18/24 15:32 Height 5 ft 8 in Weight 242 lb BMI 36.8 BP 130/80 Blood Pressure Location Lt brachial Position Sitting Pulse 90 Pulse Source Pulse Oximeter Temp 97.8 F Temp Source Oral Pulse Oximetry (%) 96 Oxygen Delivery Method Room Air Intake Visit Reasons: 4m follow up Intake Note: pt is here for 4 mon f.up Data Services Developer Required: No Accompanied by: Self / Same As Patient Allergies No Known Allergies Allergy (Verified 07/18/24 15:32) Medication List - Last Reconciled 07/18/24 by ESTHER Polk- atorvastatin 10 mg PO BEDTIME losartan 25 mg PO DAILY Tobacco use date assessed: 07/18/24 Dental Screening Dental Screen Date: 07/18/24 Did you have a dental visit in the last 12 months?: Yes Did you have a dental problem in the last 6 months where you did not have access to dental care?: No Was dental information given to patient?: Patient has dentist HPI 4m follow up HPI Details Chief Complaint Intermittent peripheral neuropathy associated with Type 2 Diabetes Mellitus. History of Present Illness The patient is a 64-year-old male presenting with concerns about the management of Type 2 Diabetes Mellitus and associated diabetic peripheral neuropathy. Intermittent neuropathy is reported despite showing good sensation by mono filament test, and the patient is seeing a precision lens grinder apprentice for comprehensive care, including arthritis management in his feet. The patient's diabetes management has included diet modification and use of s tatins, with evidence of cholesterol reduction and an A1c of 7.2% today. He previously noted microalbuminuria, for which nephrology referral is planned for further evaluation. Laboratory findings recently revealed an ALT elevation, and as such, an abdominal ultrasound was ordered. For symptomatic management of neuropathy and arthritis, capsaicin cream use was advised. Additionally, he reports completion of eye examinations with current findings noted during the visit. NOTE: pt smokes a pack a week, at the most, since age 36. Social History - No specific social history details wer e discussed. Health Maintenance - Laboratory tests showed elevated ALT, warranting an abdominal ultrasound. - Continued management of hyperlipidemia with statins and diet. - Eye examination is current. - Monitoring of microalbuminuria is note d; nephrology referral suggested. - Diabetes management efforts through di etary adjustments and medication compliance. Review of Systems - Musculoskeletal: Reports foot arthriti s. - Neurological: Reports intermittent francisco ropathy. Physical Exam General: Cooperative, healthy appearing, comfortable, no acute distress and well developed Orientation: Patient oriented x3 Limitations: No limitations Head: Normal to inspection Ears: Hearing grossly normal bilaterally Nose: Normal external nose present Face and sinus: Normal facial exam Eyes: Appearance normal, both eyes and all related structures Neck: Normal visual inspection and Yes full ROM Respiratory: Normal respiratory effort and able to speak in complete sentences. Clear to auscultation bilaterally Cardiovascular: Regular rate and rhythm. Normal S1 and S2 GI: Normal to inspection. Soft to palpation and nontender Skin: No rashes or lesions noted Neuro: Patient oriented x3 Extremities: Normal to inspection Results - Labs: Slight elevation in ALT noted. - Hemoglobin A1c: 7.2%. - Imaging: Abdominal ultrasound pending. Plan Type 2 Diabetes Mellitus management will include commencing Jardiance, alongside current dietary measures and statin use for hyperlipidemia, with documented cholesterol reduction. An abdominal ultrasound is scheduled to address elevated ALT levels, and a nephrology referral will be made due to his history of microalbuminuria. Neuropathic and arthritic symptoms will be managed with capsaicin cream application. We will continue to promote lifestyle changes to a ddress morbid obesity, and his eye exam remains current. Discussion Notes I discussed with the patient the initiation of Jardiance for diabetes management and outlined the next steps regarding his elevated ALT, including conducting an abdominal ultrasound. We reviewed his positive response to statins as part of his hyperlipidemia management. I explained the potential benefits of capsaicin cream in alleviating neuropathic and arthritic discomfort. Future referral to nephrology for microalbuminuria was agreed upon. We also discussed the importance of weight management and diet control in addressing his comorbid conditions. Patient Instructions - Start Jardiance as prescribed for diab etes management. - Continue current diet and statin use t o manage cholesterol levels. - Attend the scheduled abdominal ultraso und to assess liver health. - Follow up with the nephrology referral for further workup of microalbuminuria. - Apply capsaicin cream for neuropathy a nd arthritis pain as directed. - Continue regular eye examinations and follow diabetic eye care advice. - Focus on weight management strategies to address obesity. [facility] Surgical History No pertinent past surgical history Family History Mother CHF (congestive heart failure) Father No problems noted. Son Substance abuse Social History Housing: Other Alcohol intake: never Patient Tobacco Use Status: Never used Tobacco e-Cigarette/Vaping Use: Never Used Current occupational exposures/hazards: No Cognitive needs: No Hearing needs: No Vision needs: No Questionnaire PHQ-9 Over the last 2 weeks, how often have you been bothered by any of the following problems? 1. Little interest or pleasure in doing things: not at all 2. Feeling down, depressed, or hopeless: not at all 3. Trouble falling or staying asleep, or sleeping too much: not at all 4. Feeling tired or having little energy: not at all 5. Poor appetite or overeating: not at all 6. Feeling bad about yourself - or that you are a failure or have let yourself or your family down: not at all 7. Trouble concentrating on things, such as reading the newspaper or watching television: not at all 8. Moving or speaking so slowly that other people could have noticed. Or the opposite - being so fidgety or restless that you have been moving around a lot more than usual: not at all 9. Thoughts that you would be better off or of hurting yourself in some way: not at all Total score: 0 Depression Screening Interpretation: Negative Depression Screening Done: Yes 80998 - PHQ-9 Billing: Yes Source: Developed by Drs. Ray Abdi, Dena Mejia, Chacorta Ding and colleagues, with an educational hay from [employer]. Thrive Questionnaire Date Thrive assessed: 07/18/24 I am a: Patient What is your living situation today?: I have a steady place to live Within the past 12 months, did the food you bought not last and you didn't have the money to get more?: I choose not to answer this question Within the past 12 months, did you worry whether your food would run out before you got money to buy more?: Never true Do you have trouble paying for medicines?: No Do you have trouble getting transportation to medical appointments?: No Do you have trouble paying your heating and electricity bill?: No Do you have trouble taking care of your child, family member or friend?: No Do you have trouble with day-to-day activities such as bathing, preparing meals, shopping, managing finances, etc.?: No Are you currently unemployed and looking for a job?: No Are you interested in more education?: No Please select the resources that you would like help with: None Currently or been in a relationship where the following occur: No concerns reported THRIVE Score: 0 AUDIT C Alcohol Use Questionnaire (AUDIT-C) 1. How often do you have a drink containing alcohol?: Never 3. How often do you have six or more drinks on one occasion?: Never Total Score: 0 Score Reviewed/Action Taken: Yes MARY-7 AMB Questionnaire MARY-7 Date MARY - 7 assessed: 07/18/24 Feeling nervous, anxious, or on edge: 3 = Nearly every day Not being able to stop or control worryin = Not at all Worrying too much about different things: 0 = Not at all Trouble relaxin = Not at all Being so restless that it is hard to sit still: 0 = Not at all Becoming easily annoyed or irritable: 0 = Not at all Feeling afraid as if something awful might happen: 0 = Not at all Total MARY-7 score (0-4 normal; 5-9 mild; 10-14 moderate; 15-21 severe): 3 Source: Developed by Drs. Ray Abdi, Dena Mejia, Chacorta Ding and colleagues, with an educational hay from [employer]. MARY-7 Assessment Billing MRAY-7 Assessment Tool: MARY-7 Assessment 28794 Physical exam (Primary Care) Vital Signs: Last Vital Signs Temp 97.8 F 07/18/24 15:32 Pulse 90 07/18/24 15:32 BP 130/80 07/18/24 15:32 Pulse Ox 96 07/18/24 15:32 Oxygen Delivery Method Room Air 07/18/24 15:32 BMI result Body Mass Index 36.8 Tobacco/Smoking Status: Tobacco use Status Tobacco use date assessed 07/18/24 07/18/24 15:35 Patient Tobacco Use Status Never used Tobacco 07/18/24 15:35 e-Cigarette/Vaping Use Never Used 07/18/24 15:35 PHQ-9: PHQ-9 Score PHQ-9: Total score 0 07/18/24 15:35 Depression Screening Interpretation: Negative Thrive Assessment: Date of Thrive Assessment Date Thrive assessed 07/18/24 07/18/24 15:35 Currently or been in a relationship where the following occur: No concerns reported Results AMB Hemoglobin A1c AMB Hemoglobin A1c 7.2 % Last Edit by Jey Bermudez CMA on 07/18/24 16: 05 Coding Level of Care Code Est Pt Level 3 (75622) Diagnoses Elevated liver enzymes R74.8 Microalbuminuria R80.9 Diabetes E11.9 Additional Codes MARY-7 Assessment Billing - MARY-7 Assessment Tool: MARY-7 Assessment 14993 ([id number]) PHQ-9 - 57425 - PHQ-9 Billing: Yes ([id number]) Assessment & Plan Assessment & Plan (1) Elevated liver enzymes: Code(s): R74.8 - Abnormal levels of other serum enzymes Category: Medical (2) Microalbuminuria: Code(s): R80.9 - Proteinuria, unspecified Category: Medical (3) Diabetes: Code(s): E11.9 - Type 2 diabetes mellitus without complications Category: Medical Plan . Orders: Orders US abdomen complete Today R74.8 - Abnormal levels of other serum enzymes AMB Hemoglobin A1c Today Z13.9 - Encounter for screening, unspecified Referrals Nephrology Referral R80.9 - Proteinuria, unspecified Medications: New empagliflozin (Jardiance) 10 mg PO DAILY 30 tabs 2RF
--- OUTSIDE RECORDS SUMMARY | 2024-07-18 18:13 | XMS_ITS | Patient Health Record ---
[facility] Address [address] [place] [address] Care Team Providers Care Review Appraiser Name Role Phone Jassi Molina MD Primary Care Provider Leonel Evans Unavailable [phone] Allergies Allergen (clinical drug ingredient) Drug/Non Drug [...] Date Coverage End Date [employer] [address] [address] [place] [address] [id number] Brady Arzate Self - patient is the insured Medical (General) History Medical History History ICD Code Arthritis Surgical History Surgery Date(Month/Year) L lymph node removed 11/12/21 arm surgery 2021
== END 2024-07-18 16:21 | disposition home or self-care (01) ==
LOC: HO.HMCC 15:30
PROVIDERS: Visit Provider Nurse Practitioner Family
DX: R74.8 Abnormal levels of other serum enzymes (principal); R80.9 Proteinuria, unspecified; E11.9 Type 2 diabetes mellitus without complications; Z13.9 Encounter for screening, unspecified

== ENCOUNTER → 2024-07-18 15:30 | Outpatient (BNVA) | payer OTHER, SELFPAY | PROVIDERS: Visit Provider Nurse Practitioner Family | DX: E11.42 Type 2 diabetes mellitus with diabetic polyneuropathy (principal); R74.8 Abnormal levels of other serum enzymes; R80.9 Proteinuria, unspecified | CPT/HCPCS: 83036; 96127 ==

== ENCOUNTER 2024-08-15 08:45 | Outpatient (REF) | payer OTHER, SELFPAY ==
--- NOTE | ~2024-08-15 | US_ITS ---
EXAMINATION: US ABDOMEN HISTORY: R74.8 - Abnormal levels of other serum enzymes TECHNIQUE: Real-time grayscale ultrasound imaging of the abdomen was performed and images were reviewed. COMPARISON: There are no prior studies for comparison. FINDINGS: Liver: The right lobe of the liver measures 16.8 cm in size. The left lobe of the liver measures 9.7 cm in size. The liver demonstrates increased echotexture, consistent with steatosis. No focal mass or intrahepatic biliary ductal dilatation is identified. There is normal hepatopedal flow in the portal vein. Gallbladder and biliary tree: The gallbladder is unremarkable, without evidence of calculi, wall thickening, or pericholecystic fluid. There is no sonographic Salamanca sign. The common bile duct is normal in caliber measuring 5 mm. Kidneys: The right kidney measures 12.5 cm in length. The left kidney measures 12.3 cm in length. The kidneys are unremarkable, without evidence of masses, hydronephrosis, or calculi. Pancreas: The pancreatic head, neck, and body are unremarkable. The pancreatic tail is obscured by bowel gas. Spleen: The spleen is normal in size and contour, measuring 10.0 cm in length. Abdominal aorta and inferior vena cava: The visualized portions of the abdominal aorta and inferior vena cava are normal in caliber. There is no free fluid in the abdomen. US/US abdomen complete IMPRESSION: Mild hepatomegaly and hepatic steatosis. Otherwise unremarkable abdominal ultrasound. Electronically signed by: Ray Phipps MD 08/15/2024 09:21 AM EDT
--- OUTSIDE RECORDS SUMMARY | 2024-08-15 09:05 | XMS_ITS | Patient Health Record ---
Author Organization [facility] Address [address] [place] [address] Care Team Providers Care Commercial Plumber Name Role Phone Jassi Molina MD Primary Care Provider Leonel Evans Unavailable [phone] Allergies Allergen (clinical drug ingredient) Drug/Non Drug [...] Date Coverage End Date [employer] [address] [address] [place] [address] [id number] Brady Arzate Self - patient is the insured Medical (General) History Medical History History ICD Code Arthritis Surgical History Surgery Date(Month/Year) L lymph node removed 11/12/21 arm surgery 2021
== END 2024-08-15 08:46 | disposition home or self-care (01) ==
LOC: HO.HMGCX 08:45
PROVIDERS: PCP Nurse Practitioner Family; Visit Provider Nurse Practitioner Family
DX: R74.8 Abnormal levels of other serum enzymes (principal)
CPT/HCPCS: 76700

== ENCOUNTER → 2024-08-15 08:48 | Outpatient (BNV) | payer OTHER, SELFPAY | PROVIDERS: PCP Nurse Practitioner Family; Visit Provider Radiology Diagnostic Radiology | DX: R16.0 Hepatomegaly, not elsewhere classified (principal); K76.0 Fatty (change of) liver, not elsewhere classified; R74.8 Abnormal levels of other serum enzymes | CPT/HCPCS: 76700 ==

== ENCOUNTER 2024-08-15 15:20 | Outpatient (AMB) | payer OTHER, SELFPAY ==
--- NOTE | 2024-08-15 15:38 | HO.NEPHOV ---
Vital Signs 08/15/24 15:40 Height 5 ft 8 in Weight 239 lb 8 oz BMI 36.4 BP 114/70 Blood Pressure Location Rt brachial Position Sitting Pulse 79 Pulse Source Pulse Oximeter Pulse Oximetry (%) 94 Oxygen Delivery Method Room Air Intake Visit Reasons: INP: Proteinuria-LVM Bobbin Inspector Required: No Accompanied by: Self / Same As Patient Allergies No Known Allergies Allergy (Verified 08/15/24 15:40) HPI Comments Details: I had the pleasure of seeing Brady who is a 64 year old male in consultation for proteinuria. He has Type 2 Diabetes Mellitus and associated diabetic peripheral neuropathy as well proteinuria but denied retinopathy. He had been trying diet modification , metformin and use of statins, with evidence of cholesterol reduction but still having A1c of 7.2. He has been having diarrhea from metformin for which it has been discontinued and SGLT2 i has been initiated which he has not started taking yet. He has no edema, dysuria, hematuria, froth or foam in the urine. He smokes a pack a week, at the most, since age 36. He denies any vascular complaints. He is not very active and has not lost any weight. He denies CAD, CVA, CHF, PAD, carotid stenosis or EDGARDO. His renal function has been normal. He does not check his BP at home. He denied any cancers. He claims to be compliant with medications including losartan. He denies using excessive NSAID's, new bone or back pain. He has no epistaxis, joint swelling, photosensitivity, sensori neural deafness. His renal function is normal. [facility] Surgical History No pertinent past surgical history Family History Mother CHF (congestive heart failure) Father No problems noted. Son Substance abuse Social History Housing: Other Alcohol intake: never Patient Tobacco Use Status: Never used Tobacco e-Cigarette/Vaping Use: Never Used Current occupational exposures/hazards: No Cognitive needs: No Hearing needs: No Vision needs: No Review of Systems Const All systems reviewed & are unremarkable except as noted in HPI and below Physical Exam Vital Signs: Last Vital Signs Pulse 79 08/15/24 15:40 BP 114/70 08/15/24 15:40 Pulse Ox 94 08/15/24 15:40 Oxygen Delivery Method Room Air 08/15/24 15:40 BMI result Body Mass Index 36.4 Const General: comfortable and no acute distress Orientation/consciousness: patient oriented x3 HEENT Head: Yes normocephalic Mouth: Normal oral and palatal mucosa present Eyes EOM: EOMs intact bilaterally Neck Neck: Yes supple Resp Auscultation: clear to auscultation bilaterally Cardio Jugular venous distension: no JVD Rate: regular rate GI Palpation (GI): Soft to palpation Auscultation: normal bowel sounds General: Yes no CVA tenderness Back/Spine/Pelvis Back: no CVA tenderness Skin General skin exam: no rashes or lesions noted Neuro General: patient oriented x3 and moves all extremities Extrem General: Yes no pedal edema Results Reviewed Nephrology Results: Hgb 16.3 g/dl (14.0-18.0) 03/24/24 WBC 4.7 X10*3/uL (4.8-10.8) L 03/24/24 Plt Count 229 X10*3/uL (160-400) 03/24/24 Sodium 140 mmol/L (135-145) 07/07/24 Potassium 4.3 mmol/L (3.3-5.1) 07/07/24 Chloride 106 mmol/L (96-108) 07/07/24 Carbon Dioxide 24 mmol/L (22-29) 07/07/24 BUN 14 mg/dL (9-16) 07/07/24 Creatinine 0.81 mg/dL (0.5-1.4) 07/07/24 Calcium 9.3 mg/dL (8.4-10.2) 07/07/24 Urine Protein 100 (2+) mg/dL (Neg-Trace) H 03/24/24 Urine Creatinine 139.71 mg/dL 03/24/24 Assessment & Plan Assessment & Plan (1) Microalbuminuria: Code(s): R80.9 - Proteinuria, unspecified Category: Medical Plan Luc proteinuria is from diabetic nephropathy. He is also at risk for secondary FSGS from high BMI. He needs to lose weight. He has been on losartan 25 mg daily which I plan to increase to 25 mg bid and maximize it based on evolving data. His BP needs to be maintained at goal. He has been initiated on SGLT2 i which he has not started yet. He should maintain good hydration and avoid NSAID's. I shall investigate in extensive detail if his proteinuria worsens. All these have been discussed in detail. Answered all questions. Follow up given Orders: Orders Protein Creatinine Ratio, Ur 3 Months R80.9 - Proteinuria, unspecified Coding Level of Care Code New Pt Level 4 (23332) Diagnoses Microalbuminuria R80.9
[2024-08-15 15:40] VITALS: BP 114/70; PULSE 79; O2SAT 94; BMI 36.4
== END 2024-08-15 16:17 | disposition home or self-care (01) ==
LOC: HO.HKA 15:20
PROVIDERS: PCP Nurse Practitioner Family; Visit Provider Internal Medicine Nephrology
DX: R80.9 Proteinuria, unspecified (principal)
CPT/HCPCS: 99204

== ENCOUNTER 2024-09-13 11:01 | Outpatient (AMB) | payer OTHER, SELFPAY ==
--- NOTE | 2024-09-13 11:47 | MHC.OFFWIV ---
Intake Vital Signs 09/13/24 11:48 Weight 239 lb BP 122/80 Blood Pressure Location Rt brachial Position Sitting Pulse 102 H Pulse Source Pulse Oximeter Pulse Oximetry (%) 96 Oxygen Delivery Method Room Air Intake Visit Reasons: EP lower back pain Intake Note: Patient here for lower back pain that radiates down the left leg Patient Tobacco Use Status: Never used Tobacco Allergies No Known Allergies Allergy (Verified 09/13/24 11:47) HPI HPI Comments History of Present Illness Details 64 y/o Male patient who presents to the walk in clinic with c/o Lower back pain that radiates down left lower extremity. He was seen at a local yesterday and prescribed Prednisone and Flexeril. Pt reports no improvement, he still has really bad pain. Pain worse with walking, standing and bending over. Denies injury or trauma. Denies Bowel or urinary symptoms. Pt wondering if he can have Cortisone injections to his back. [facility] Medical History (Updated 09/13/24 @ 12:43 by Ene Roth NP) Lumbago with sciatica Surgical History No pertinent past surgical history Family History Mother CHF (congestive heart failure) Father No problems noted. Son Substance abuse Social History Housing: Other Alcohol intake: never Patient Tobacco Use Status: Never used Tobacco e-Cigarette/Vaping Use: Never Used Current occupational exposures/hazards: No Cognitive needs: No Hearing needs: No Vision needs: No Review of Systems Const All systems reviewed & are unremarkable except as noted in HPI and below Physical Exam Vital Signs: Last Vital Signs Pulse 102 H 09/13/24 11:48 BP 122/80 09/13/24 11:48 Pulse Ox 96 09/13/24 11:48 Oxygen Delivery Method Room Air 09/13/24 11:48 Const General: no acute distress Nutritional Appearance: obese morbidly obese Orientation/consciousness: patient oriented x3 GI Inspection: Yes Abdominal panniculus present General: Yes no CVA tenderness Back/Spine/Pelvis Back: no CVA tenderness and back tenderness Neuro General: patient oriented x3, gait normal and moves all extremities Psych Speech and movement: Normal speech and movement present Assessment & Plan Assessment & Plan (1) Lumbago with sciatica: Code(s): M54.40 - Lumbago with sciatica, unspecified side Qualifiers: Chronicity: acute Back pain laterality: left Sciatica laterality: sciatica of left side Qualified Code(s): M54.42 - Lumbago with sciatica, left side Plan: Continue taking medications prescribed from UC. Placed referral to Pain management. NSAIDs and Acetaminophen for pain relief. Rest Ice/Hot. Orders: Referrals Pain Management Referral M54.42 - Lumbago with sciatica, left side Coding Level of Care Code Est Pt Level 4 (34577) Diagnoses Acute left-sided low back pain with left-sided sciatica M54.42 Chronicity: acute Back pain laterality: left Sciatica laterality: sciatica of left side Time Spent (min) 20
[2024-09-13 11:48] VITALS: BP 122/80; PULSE 102; O2SAT 96
--- OUTSIDE RECORDS SUMMARY | 2024-09-13 12:33 | XMS_ITS | Patient Health Record ---
[facility] Address [address] [place] [address] Care Team Providers Care Outreach Liaison Name Role Phone Jassi Molina MD Primary Care Provider Leonel Evans Unavailable [phone] Allergies Allergen (clinical drug ingredient) Drug/Non Drug [...] Date Coverage End Date [employer] [address] [place] [address] [id number] Brady Arzate Self - patient is the insured Medical (General) History Medical History History ICD Code Arthritis Surgical History Surgery Date(Month/Year) L lymph node removed 11/12/21 arm surgery 2021
== END 2024-09-13 12:19 | disposition home or self-care (01) ==
PROVIDERS: PCP Nurse Practitioner Family; Visit Provider Nurse Practitioner Family
DX: M54.42 Lumbago with sciatica, left side (principal)

== ENCOUNTER → 2024-09-13 11:01 | Outpatient (BNVA) | payer OTHER, SELFPAY | PROVIDERS: PCP Nurse Practitioner Family; Visit Provider Nurse Practitioner Family ==

== ENCOUNTER 2024-10-27 09:21 | Outpatient (AMB) | payer OTHER, SELFPAY ==
--- OUTSIDE RECORDS SUMMARY | 2024-10-27 09:23 | XMS_ITS | Patient Health Record ---
Author [facility] Address [address] [place] [address] Care Team Providers Care Life Sciences Director Name Role Phone Jassi Molina MD Primary Care Provider Leonel Evans Unavailable [phone] Allergies Allergen (clinical drug ingredient) Drug/Non Drug [...] Date Coverage End Date [employer] [address] [place] [address] [id number] Brady Arzate Self - patient is the insured Medical (General) History Medical History History ICD Code Arthritis Surgical History Surgery Date(Month/Year) L lymph node removed 11/12/21 arm surgery 2021
--- NOTE | 2024-10-27 09:26 | AM.OFFWIN_ITS ---
Intake Vital Signs 10/27/24 09:27 Height 5 ft 8 in Weight 233 lb BMI 35.4 BP 110/70 Blood Pressure Location Lt brachial Position Sitting Respiration 15 Pulse 87 Pulse Source Pulse Oximeter Temp 98.0 F Temp Source Oral Pulse Oximetry (%) 97 Intake Visit Reasons: EP-Low Back pain Intake Note: Pt is here today c/o lower back pain on and off Patient Tobacco Use Status: Never used Tobacco Allergies No Known Allergies Allergy (Verified 10/27/24 09:31) HPI HPI Comments History of Present Illness Details Brady Arzate presents with ongoing back pain that originated in September 2024. The patient initially sought treatment at [facility] due to severe pain at work, where he was prescribed muscle relaxers and pain medication. The back pain has improved since the initial incident but continues to cause discomfort, particularly when lying down at night and attempting to get up. Mr. Arzate describes the pain as tightening up during these times. He is currently managing the pain with Advil and attempting to stretch as recommended, but still finds it necessary to get up in the middle of the night to stretch. The patient reports a history of a similar issue with his neck, which was diagnosed as a pinched nerve via MRI and successfully treated with a cortisone shot. He notes that his current back pain feels tight and has persisted for about a month since the initial injury. Mr. Arzate took a couple of days off work following the urgent care visit but has not yet consulted his primary care physician, Dr. Pollard, regarding this issue. In addition to his back pain, Mr. Arzate mentions having arthritis in his feet, which was also alleviated by the pain medication prescribed at [facility]. He expresses interest in trying muscle relaxers to potentially address his back pain. [facility] Medical History (Updated 09/13/24 @ 12:43 by Ene Roth NP) Lumbago with sciatica Surgical History No pertinent past surgical history Family History Mother CHF (congestive heart failure) Father No problems noted. Son Substance abuse Social History Housing: Other Alcohol intake: never Patient Tobacco Use Status: Never used Tobacco e-Cigarette/Vaping Use: Never Used Current occupational exposures/hazards: No Cognitive needs: No Hearing needs: No Vision needs: No Physical Exam Vital Signs: Last Vital Signs Temp 98.0 F 10/27/24 09:27 Pulse 87 10/27/24 09:27 Resp 15 10/27/24 09:27 BP 110/70 10/27/24 09:27 Pulse Ox 97 10/27/24 09:27 BMI result Body Mass Index 35.4 Const General: cooperative, healthy appearing, no acute distress and alert Orientation/consciousness: patient oriented x3 Limitations: no limitations HEENT Head: Yes normal to inspection Ears: hearing grossly normal bilaterally General nose exam: Normal external nose present Resp Effort & Inspection: normal respiratory effort and able to speak in complete sentences Cardio Rate: regular rate Skin General skin exam: no rashes or lesions noted Neuro General: patient oriented x3 Gait exam (Neuro): Normal gait present Extrem General: Yes normal to inspection Assessment & Plan Assessment & Plan (1) Lumbago with sciatica: Code(s): M54.40 - Lumbago with sciatica, unspecified side Qualifiers: Chronicity: acute Back pain laterality: left Sciatica laterality: sciatica of left side Qualified Code(s): M54.42 - Lumbago with sciatica, left side Plan: 1. Low Back Pain: - Pain began in September following injury, initially treated at [facility] - Improved but experiences tightness and pain when lying down and getting up at night - Pain persisted for about a month since initial injury - History of neck pain previously treated with cortisone injection for pinched nerve on MRI - Current symptoms suggest possible muscular issue - No red flag symptoms present Plan: - Prescribe Robaxin (methocarbamol) muscle relaxer - Patient to start with one tablet and assess efficacy - Continue [id number] Advil (ibuprofen) as needed for pain - Strongly recommend Physical therapy. patient decline - Follow up with primary care physician, Dr. Pollard, at scheduled [facility] - Defer imaging studies unless red flag symptoms develop or pain persists beyond 8 weeks Medications: New methocarbamol 500 mg PO BEDTIME 10 tabs 0RF Coding Level of Care Code Est Pt Level 4 (33129) Diagnoses Acute left-sided low back pain with left-sided sciatica M54.42 Chronicity: acute Back pain laterality: left Sciatica laterality: sciatica of left side
[2024-10-27 09:27] VITALS: BP 110/70; PULSE 87; RESP 15; TEMP 36.7; O2SAT 97; BMI 35.4
== END 2024-10-27 09:56 | disposition home or self-care (01) ==
PROVIDERS: PCP Nurse Practitioner Family; Visit Provider Physician Assistant
DX: M54.42 Lumbago with sciatica, left side (principal)

== ENCOUNTER 2025-02-06 08:18 | Outpatient (AMB) | payer OTHER, SELFPAY ==
[2025-02-06 08:25] VITALS: BP 138/92; PULSE 87; RESP 16; TEMP 36.6; O2SAT 96; BMI 36.2
--- NOTE | 2025-02-06 08:25 | MHC.OFFWIV ---
Intake Vital Signs 02/06/25 08:25 Height 5 ft 8 in Weight 238 lb BMI 36.2 BP 138/92 H Blood Pressure Location Lt brachial Position Sitting Respiration 16 Pulse 87 Pulse Source Pulse Oximeter Temp 97.8 F Temp Source Oral Pulse Oximetry (%) 96 Oxygen Delivery Method Room Air Intake Visit Reasons: EP-lower lt back pain Patient Tobacco Use Status: Never used Tobacco Allergies No Known Allergies Allergy (Verified 10/27/24 09:31) HPI HPI Comments History of Present Illness Details History - The patient is a 65-year-old male presenting with low back pain for a few weeks. - The low back pain persists, with some improvement but ongoing discomfort, especially in the lower back. - Pain worsens with movements like going over bumps and standing up, causing stiffness. - History of back issues with previous therapy sessions attended. - Interventions include ice, heat, and electrical stimulation with limited relief. - Denies numbness, tingling, or weakness in legs; no bladder or bowel control loss. - Muscle tightness in lower back, no shooting pain down his legs or buttocks. Physical Exam General: cooperative, healthy appearing and comfortable, patient oriented x3 Head: Yes normal to inspection and Yes normocephalic General nose exam: Normal external nose present Face and sinus: Yes normal facial exam Effort & Inspection: normal respiratory effort and able to speak in complete sentences Back/spine: no tenderness on the spine, muscular tightness noted in the left low back area and slight TTP cervical, thoracic and lumbar spine normal to inspection cervical ROM normal, thoracic ROM normal, lumbar ROM normal no Cervical, thoracic or lumbar spine tenderness Extremities: moving all extremities normally Review of Systems - Musculoskeletal: Reports low back pain and muscle tightness. Denies numbness, tingling, or weakness in legs. - Neurological: Denies loss of bladder or bowel control. All systems reviewed and are unremarkable except as noted in HPI [facility] Medical History (Updated 02/06/25 @ 08:37 by Rachael Farris PA-C) Lumbago with sciatica Surgical History No pertinent past surgical history Family History Mother CHF (congestive heart failure) Father No problems noted. Son Substance abuse Social History Housing: Other Alcohol intake: never Patient Tobacco Use Status: Never used Tobacco e-Cigarette/Vaping Use: Never Used Current occupational exposures/hazards: No Cognitive needs: No Hearing needs: No Vision needs: No Physical Exam Vital Signs: Last Vital Signs Temp 97.8 F 02/06/25 08:25 Pulse 87 02/06/25 08:25 Resp 16 02/06/25 08:25 BP 138/92 H 02/06/25 08:25 Pulse Ox 96 02/06/25 08:25 Oxygen Delivery Method Room Air 02/06/25 08:25 BMI result Body Mass Index 36.2 Assessment & Plan Assessment & Plan (1) Low back pain: Code(s): M54.50 - Low back pain, unspecified Qualifiers: Chronicity: acute Back pain laterality: left Sciatica presence: without sciatica Qualified Code(s): M54.50 - Low back pain, unspecified Plan: Plan - Prescribe a muscle relaxant, such as cyclobenzaprine, to be taken at night to alleviate muscle spasms. - Recommend an anti-inflammatory medication to be taken every 12 hours, avoiding other NSAIDs like Aleve or ibuprofen. - Advise the patient to avoid driving or consuming alcohol while taking the muscle relaxant. - Send prescriptions to the patient's preferred pharmacy. - If no improvement, follow up with your PCP Patient was informed and verbally consented to the use of an ambient scribe for clinic note documentation during this visit. Medications: New cyclobenzaprine 5 mg PO Q8H PRN 20 tabs 0RF Muscle Spasm diclofenac sodium 50 mg PO Q12H PRN 20 tabs 0RF pain Discontinued methocarbamol Discontinued Reason: Patient Completed Course 500 mg PO BEDTIME 10 tabs 0RF Coding Level of Care Code Est Pt Level 3 (56876) Diagnoses Acute left-sided low back pain without sciatica M54.50 Chronicity: acute Back pain laterality: left Sciatica presence: without sciatica
--- OUTSIDE RECORDS SUMMARY | 2025-02-06 08:46 | XMS_ITS | Clinical Summary ---
Author Organization [facility] Address [address] [place], [place] [id number] Phone Care Team Providers Care Meter Shop Supervisor Name Role Phone Dandy Molina MD Primary Care Provider + Allergies No known active allergies Medications atorvastatin (LIPITOR) 10 MG tablet take 1 tab by mouth at bedtime 06/26/2024 Active FREESTYLE LITE Strp strips USE TO TEST BLOOD SUGAR ONCE A DAY 08/02/2024 Active losartan (COZAAR) 25 MG tablet Take 1 tablet by mouth every morning. 06/25/2024 Active metFORMIN (GLUCOPHAGE-XR) 500 MG 24 hr tablet TAKE 1 TABLET BY MOUTH ONCE DAILY FOR 1 WEEK THEN INCREASE TO 1 TABLET TWICE A DAY 07/30/2024 Active cyclobenzaprine (FLEXERIL) 10 MG tablet Take 1 tablet (10 mg total) by mouth 3 (three) times a day as needed (pain). 30 tablet 09/12/2024 Active Active Problems No known active problems Social History Tobacco Use Types Packs/Day Years Used Date Smoking Tobacco: Former Smokeless Tobacco: Never Education Answer Date Recorded Are you interested in more education? Not on helen e 09/04/2022 Are you concerned about learning? Not on file 09/04/2022 No 09/04/2022 No 09/04/2022 Digital Access Answer Date Recorded No 10/03/2022 No 10/03/2022 No 10/03/2022 Reliable internet access at home? Not on file 10/03/2022 Device with a working camera? Not on file Sex and Gender Information Value Date Recorded Sex Assigned at Not on file Legal Sex Male 11:33 AM EDT Gender Identity Not on file Sexual Orientation Not on file Last Filed Vital Signs Vital Sign Reading Time Taken Comments Blood Pressure 122/72 09/12/2024 2:07 PM EDT Pulse 78 09/12/2024 2:07 PM EDT Temperature 36.8 C (98.2 F) 09/12/2024 2:07 PM EDT Respiratory Rate 20 09/12/2024 2:07 PM EDT Oxygen Saturation 96% 09/12/2024 2:07 PM EDT Inhaled Oxygen Concentration - - Weight 117.9 kg (260 lb) 03/09/2021 12:41 PM EDT per pt Height - - Body Mass Index - - Plan of Treatment Health Maintenance Due Date Last Done Comments Adult Td,Tdap Booster 1961 CREATININE LEVEL 1961 LIPID PANEL 1961 POTASSIUM LEVEL 1961 DEPRESSION SCREENING 1973 SMOKING Hx and SMOKELESS TOB ACCO SCREENING 1974 HEPATITIS C SCREENING 1979 HIV ONE-TIME SCREENING (18-6 5 YEARS) 1979 COLOGUARD 2006 COLONOSCOPY 2006 COLORECTAL CANCER SCREENING 2006 FIT TEST 2006 FOBT 2006 SIGMOIDOSCOPY 2006 VIRTUAL COLONOSCOPY 2006 PNEUMOCOCCAL VACCINES (50+ y ears) (1 of 1 - PCV) 2011 ZOSTER VACCINES (1 of 2) 2011 INFLUENZA VACCINE (#1) 2024 03/15/2019 COVID-19 VACCINE (2 - 2024-2 6 season) 2025 08/29/2020 RSV VACCINE (1 - 1-dose 75+ series) 01/18/2036 HEPATITIS A VACCINES Aged Out No long er eligible based on patient's age to complete this topic HIB VACCINES Aged Out No longer eligi ble based on patient's age to complete this topic MENINGOCOCCAL VACCINES (ACWY) Aged Out No longer eligible based on patient's age to complete this topic MENINGOCOCCAL VACCINES (B) Aged Out N o longer eligible based on patient's age to complete this topic Medical Devices Not on file Insurance [facility] PASSPORT PPO Member Subscriber Plan / Payer (Ef fective 2019-Present) Name:Brady Arzate Relation to Subscriber:Self Name:Brady Arzate Payer ID:[id number] (NAIC) Type:PPO [address] [employer] PPO NA PPO [employer] [place] [address] [place] [address] [employer] PPO [employer] [place]PO [place] [address] [employer] PASSPORT PPO [employer] PAS[employer]ORT PPO CIGNA PPO ERN PASSPORT PPO Member Subscriber Plan / Payer (Ef fective 2019-Present) Name:Brady Arzate Relation to Subscriber:Self Name:Brady Arzate Payer ID:[id number] (NAIC) Type:PPO Address[address] P[address] PASSPORT PPO NA PPO Care Teams Meter Shop Supervisor Relationship Specialty Start Date End Date Dandy Molina MD [address] [place] [id number] PCP - General Internal Medicine 03/09/21 Additional Source Comments The information contained in this document represents components of the legal health record. It is not the complete legal health record.[facility]
--- OUTSIDE RECORDS SUMMARY | 2025-02-06 08:46 | XMS_ITS | Patient Health Record ---
Author [facility] Address [address] [facility] [place] [address] Care Team Providers Care Supervisor Endless Track Vehicle Name Role Phone Jassi Molina MD Primary Care Provider Leonel Evans Unavailable [phone] Allergies Allergen (clinical drug ingredient) Drug/Non Drug [...] Date Coverage End Date [employer] [address] [place] [address] [id number] Brady Arzate Self - patient is the insured Medical (General) History Medical History History ICD Code Arthritis Surgical History Surgery Date(Month/Year) L lymph node removed 11/12/21 arm surgery 2021
== END 2025-02-06 08:54 | disposition home or self-care (01) ==
PROVIDERS: PCP Nurse Practitioner Family; Visit Provider Physician Assistant
DX: M54.50 Low back pain, unspecified (principal)

== ENCOUNTER 2025-02-08 06:36 | Outpatient (REF) | payer OTHER, SELFPAY ==
--- OUTSIDE RECORDS SUMMARY | 2025-02-08 06:39 | XMS_ITS | Clinical Summary ---
Author Organization [facility] Address [address] [place], [place] [id number] Phone Care Team Providers Care Bath Solution Maker Name Role Phone Dandy Molina MD Primary [...] topic Medical Devices Not on file Insurance [facility] PASSPORT PPO Member Subscriber Plan / Payer (Ef fective 2019-Present) Name:Brady Arzate Relation to Subscriber:Self Name:Brady Arzate Payer ID:[id number] (NAIC) Type:PPO Address[address] P[address] [employer] PPO NA PPO [employer] [place] [place] [address] [employer] PPO [employer] [place] [address] [place] [address] [employer] PASSPORT PPO [employer] PAS[employer]ORT PPO CIGNA PPO [employer] PAS[employer] PPO Member Subscriber Plan / Payer (Ef fective 2019-Present) Name:Brady Arzate Relation to Subscriber:Self Name:Brady Arzate Payer ID:[id number] (NAIC) Type:PPO Address[address] P[address] PASSPORT PPO NA PPO Care Teams Bath Solution Maker Relationship Specialty Start Date End Date Dandy Molina MD [address] [place] [id number] PCP - General Internal Medicine 03/09/21 Additional Source Comments The information contained in this document represents components of the legal health record. It is not the complete legal health record.[facility]
--- OUTSIDE RECORDS SUMMARY | 2025-02-08 06:39 | XMS_ITS | Patient Health Record ---
Author [facility] Address [address] [facility] [place] [address] Care Team Providers Care Rn Triage Name Role Phone Jassi Molina MD Primary Care Provider Leonel Evans Unavailable [phone] Allergies Allergen (clinical drug ingredient) Drug/Non Drug [...] Date Coverage End Date [employer] [address] [place] [address] [id number] Brady Arzate Self - patient is the insured Medical (General) History Medical History History ICD Code Arthritis Surgical History Surgery Date(Month/Year) L lymph node removed 11/12/21 arm surgery 2021
[2025-02-08 10:15] LABS: Appearance Urine Turbid; Glucose Urine UA Negative (Negative); PH 6.0 (5.0-9.0); Specific Gravity - Urine >= 1.030 (1.005-1.025); UMIC TRIGGER UACC YES
[2025-02-08 10:20] LABS: MANUAL DIFF FLAG NO
[2025-02-08 10:25] LABS: Hematocrit 42.6 % (42.0-52.0); Hemoglobin 14.7 g/dl (14.0-18.0); Imm Gran Abs Auto 0.00 X10*3/uL (0.00-0.03); Imm Gran Pct Auto 0.0 % (0.0-0.4); Lymphocytes Absolute Auto 1.7 X10*3/uL (1.2-4.9); Mean Corpuscular HGB Conc 34.5 g/dl (31.0-36.0); Mean Corpuscular Hemoglobin 29.8 pg (27.0-33.0); Mean Corpuscular Volume 86.4 fL (80.0-98.0); NRBC Abs Auto 0.000 X10*3/uL (0.0-0.012); NRBC Pct Auto 0.0 /100WBC (0.0-0.2); Platelet Count 222 X10*3/uL (160-400); Red Blood Count 4.93 X10*6/uL (4.60-5.80); White Blood Count 4.2 X10*3/uL (4.8-10.8)
[2025-02-08 10:49] LABS: Microalbum/Creatinine Ratio Ur 75.9 ug/mg cr (<30)
[2025-02-08 10:56] LABS: Alanine Aminotransferase 21 U/L (0-40); Albumin Level 4.5 g/dL (3.5-5.0); Alkaline Phosphatase 60 U/L (39-117); Anion Gap 9 (12-20); Aspartate Amino Transferase 26 U/L (5-37); Blood Urea Nitrogen 17 mg/dL (9-16); Calcium 9.3 mg/dL (8.4-10.2); Carbon Dioxide 27 mmol/L (22-29); Chloride 106 mmol/L (96-108); Cholesterol 190 mg/dL (<200); Estimated Glomerular Filt Rate > 60; HDL Cholesterol 54 mg/dL (>40); Potassium 4.3 mmol/L (3.3-5.1); Sodium 138 mmol/L (135-145); Total Protein 6.9 g/dL (6.5-8.0); Triglycerides 111 mg/dL (<150)
== END 2025-02-08 06:37 | disposition home or self-care (01) ==
LOC: HO.HMGCLDS 06:36
PROVIDERS: PCP Nurse Practitioner Family; Visit Provider Nurse Practitioner Family
DX: E11.9 Type 2 diabetes mellitus without complications (principal); Z12.5 Encounter for screening for malignant neoplasm of prostate
CPT/HCPCS: 36415; 80053; 80061; 81001; 82043; 82570; 83036; 84153; 84443; 85025

== ENCOUNTER 2025-02-12 08:25 | Outpatient (REF) | payer OTHER, SELFPAY ==
--- NOTE | ~2025-02-12 | XR_ITS ---
EXAMINATION: XR LUMBAR SPINE 2-3 VIEWS HISTORY: M54.50 - Low back pain, unspecified COMPARISON: There are no prior studies for comparison. FINDINGS: AP, lateral, and coned down views of the lumbar spine are submitted. Osseous mineralization is normal. Five nonrib-bearing lumbar vertebral bodies are identified, maintaining normal height without evidence of fracture or spondylolisthesis. There is slight rightward curvature which may be positional in nature. There is moderate degenerative disc disease of the upper lumbar spine with disc space narrowing and osteophyte formation. There is osteoarthritis of the facet joints. The visualized paraspinal soft tissues are unremarkable. XR/XR lumbar spine 2-3V IMPRESSION: Degenerative changes of the lumbar spine as described. Electronically signed by: Ray Phipps MD 02/12/2025 09:18 AM EDT
== END 2025-02-12 08:26 | disposition home or self-care (01) ==
LOC: HO.HMGCX 08:25
PROVIDERS: PCP Nurse Practitioner Family; Visit Provider Internal Medicine
DX: M54.50 Low back pain, unspecified (principal); G89.29 Other chronic pain; M62.830 Muscle spasm of back; Z79.899 Other long term (current) drug therapy
CPT/HCPCS: 72100

== ENCOUNTER 2025-02-12 08:25 | Outpatient (AMB) | payer OTHER, SELFPAY ==
--- NOTE | 2025-02-12 08:27 | MHC.OFFWIV ---
Intake Vital Signs 02/12/25 08:29 Height 5 ft 8 in Weight 234 lb BMI 35.6 BP 122/72 Blood Pressure Location Lt brachial Position Sitting Respiration 15 Pulse 104 H Pulse Source Pulse Oximeter Temp 97.8 F Temp Source Oral Pulse Oximetry (%) 98 Oxygen Delivery Method Room Air Intake Visit Reasons: EP Back pain Intake Note: Pt is here today c/o back pain no improvement back still stiff Patient Tobacco Use Status: Never used Tobacco Allergies No Known Allergies Allergy (Verified 10/27/24 09:31) Medication List - Last Reconciled 02/12/25 by Pinky Villa MD atorvastatin 10 mg PO BEDTIME blood sugar diagnostic (FreeStyle Lite Strips) Test blood sugar once a day cyclobenzaprine 5 mg PO Q8H PRN diclofenac sodium 50 mg PO Q12H PRN empagliflozin (Jardiance) 10 mg PO DAILY 30 days losartan 25 mg PO DAILY metformin ER 500 mg PO BID 30 days HPI EP Back pain HPI Details History of Present Illness The patient is a 65-year-old male presenting with chronic back pain and muscle spasms. Chronic Back Pain: - The patient reports chronic back pain persisting for several months, originating around September this year. 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 - Pain does not radiate to the legs and does not involve neurological symptoms like numbness significantly; a mild sensation of discomfort is mentioned. - Symptoms primarily involve tightness and muscle spasms, especially on the left lumbar area, which worsens with physical movement or change of position. - Pain intensity increases while lying down at night; moving in bed aggravates the sensation of tightness. - Previous management included cyclobenzaprine and diclofenac for muscle relaxation and pain, slightly relieving symptoms. - Formal imaging studies have not been conducted to date. Medical History: - Chronic back pain. Medications: - Cyclobenzaprine for muscle spasms. - Diclofenac 50 mg twice daily for pain relief. 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 - Recently retired from full-time employment. - Patient manages spasm symptoms with application of heat and the use of a TENS unit. - Has a back support belt but does not consistently wear it at work. Problem List - Chronic low back pain with muscle spasms. Plan - Prescribed a short course of prednisone for potential anti-inflammatory effects. - Discontinued cyclobenzaprine and prescribed baclofen as a new muscle relaxant. - Continued use of diclofenac for pain management. - Ordered lumbar spine x-ray to further evaluate potential underlying issues. - Recommended consistent use of a back support belt, especially during work activities, to mitigate spasm occurrence. - Advised applying heat and using a TENS unit for symptom relief Review of Systems - General: No fever no chills - Neurological: No headaches no dizziness - Ear nose throat: No sore throat no hearing difficulty no ear pain - Cardiovascular: No syncope, no chest pain, no palpitations - Gastrointestinal: No nausea vomiting or diarrhea Physical Exam - General: No acute distress - HEENT: No acute findings - Neck: Supple - Respiratory system: Able to talk in full sentences, no audible wheeze - Gastrointestinal: No pain - Back: Pain located lumbar paraspinal, straight leg negative bilateral - Extremities: No new findings - ASSOCIATE PROFESSOR OF LITERACY: Alert awake oriented x3 motor intact - Skin: Normal turgor [facility] Medical History Lumbago with sciatica Surgical History No pertinent past surgical history Family History Mother CHF (congestive heart failure) Father No problems noted. Son Substance abuse Social History Housing: Other Alcohol intake: never Patient Tobacco Use Status: Never used Tobacco e-Cigarette/Vaping Use: Never Used Current occupational exposures/hazards: No Cognitive needs: No Hearing needs: No Vision needs: No Physical Exam Vital Signs: Last Vital Signs Temp 97.8 F 02/12/25 08:29 Pulse 104 H 02/12/25 08:29 Resp 15 02/12/25 08:29 BP 122/72 02/12/25 08:29 Pulse Ox 98 02/12/25 08:29 Oxygen Delivery Method Room Air 02/12/25 08:29 BMI result Body Mass Index 35.6 Assessment & Plan Assessment & Plan (1) Lumbar pain: Code(s): M54.50 - Low back pain, unspecified (2) Lumbar paraspinal muscle spasm: Code(s): M62.830 - Muscle spasm of back Plan History of Present Illness The patient is a 65-year-old male presenting with chronic back pain and muscle spasms. Chronic Back Pain: - The patient reports chronic back pain persisting for several months, originating around September this year. 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 - Pain does not radiate to the legs and does not involve neurological symptoms like numbness significantly; a mild sensation of discomfort is mentioned. - Symptoms primarily involve tightness and muscle spasms, especially on the left lumbar area, which worsens with physical movement or change of position. - Pain intensity increases while lying down at night; moving in bed aggravates the sensation of tightness. - Previous management included cyclobenzaprine and diclofenac for muscle relaxation and pain, slightly relieving symptoms. - Formal imaging studies have not been conducted to date. Medical History: - Chronic back pain. Medications: - Cyclobenzaprine for muscle spasms. - Diclofenac 50 mg twice daily for pain relief. 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 - Recently retired from full-time employment. - Patient manages spasm symptoms with application of heat and the use of a TENS unit. - Has a back support belt but does not consistently wear it at work. Problem List - Chronic low back pain with muscle spasms. Plan - Prescribed a short course of prednisone for potential anti-inflammatory effects. - Discontinued cyclobenzaprine and prescribed baclofen as a new muscle relaxant. - Continued use of diclofenac for pain management. - Ordered lumbar spine x-ray to further evaluate potential underlying issues. - Recommended consistent use of a back support belt, especially during work activities, to mitigate spasm occurrence. - Advised applying heat and using a TENS unit for symptom relief Orders: Orders XR lumbar spine 2-3V Today M54.50 - Low back pain, unspecified Medications: New prednisone 10 mg PO DAILY 5 tabs 0RF 5 days baclofen 20 mg PO BEDTIME 30 tabs 0RF back spasms Changed From diclofenac sodium 50 mg PO Q12H PRN 20 tabs 0RF pain To diclofenac sodium 75 mg PO Q12H PRN 20 tabs 0RF pain back 10 days Discontinued cyclobenzaprine Discontinued Reason: Doctor's Order 5 mg PO Q8H PRN 20 tabs 0RF Muscle Spasm Coding Level of Care Code Est Pt Level 3 (43282) Diagnoses Lumbar pain M54.50 Lumbar paraspinal muscle spasm M62.830
[2025-02-12 08:29] VITALS: BP 122/72; PULSE 104; RESP 15; TEMP 36.6; O2SAT 98; BMI 35.6
--- OUTSIDE RECORDS SUMMARY | 2025-02-12 08:51 | XMS_ITS | Patient Health Record ---
[facility] Address [address] [facility] [place] [address] Care Team Providers Care Salesforce Business Analyst Name Role Phone Jassi Molina MD Primary Care Provider Leonel Evans Unavailable [phone] Allergies Allergen (clinical drug ingredient) Drug/Non Drug [...] Date Coverage End Date [employer] [address] [place] [address] [phone] [id number] Brady Arzate Self - patient is the insured Medical (General) History Medical History History ICD Code Arthritis Surgical History Surgery Date(Month/Year) L lymph node removed 11/12/21 arm surgery 2021
--- OUTSIDE RECORDS SUMMARY | 2025-02-12 08:51 | XMS_ITS | Clinical Summary ---
Author Organization [facility] Address [address] [place], [place] [id number] Phone Care Team Providers Care Inspector Assemblies And Installations Name Role Phone Dandy Molina MD Primary [...] topic Medical Devices Not on file Insurance [facility] PASSPORT PPO Member Subscriber Plan / Payer (Ef fective 2019-Present) Name:Brady Arzate Relation to Subscriber:Self Name:Brady Arzate Payer ID:[id number] (NAIC) Type:PPO [address] P[address] [employer]PORT PPO NA PPO [employer] [place] [place] [address] [employer]SPORT PPO [employer] PAS[employer]ORT PPO [place] [place] [address] [employer] PASSPORT PPO [employer] PAS[employer] PPO CIGNA PPO [employer] PASSPORT PPO Member Subscriber Plan / Payer (Ef fective 2019-Present) Name:Brady Arzate Relation to Subscriber:Self Name:Brady Arzate Payer ID:[id number] (NAIC) Type:PPO Address[id number] P[address] PASSPORT PPO NA PPO Care Teams Inspector Assemblies And Installations Relationship Specialty Start Date End Date Dandy Molina MD [address] [place] [id number] PCP - General Internal Medicine 03/09/21 Additional Source Comments The information contained in this document represents components of the legal health record. It is not the complete legal health record.[facility]
== END 2025-02-12 08:51 | disposition home or self-care (01) ==
PROVIDERS: PCP Nurse Practitioner Family; Visit Provider Internal Medicine
DX: M54.50 Low back pain, unspecified (principal); M62.830 Muscle spasm of back

== ENCOUNTER → 2025-02-12 08:53 | Outpatient (BNV) | payer OTHER, SELFPAY | PROVIDERS: PCP Nurse Practitioner Family; Visit Provider Radiology Diagnostic Radiology | DX: M51.360 Other intervertebral disc degeneration, lumbar region with discogenic back pain only (principal) | CPT/HCPCS: 72100 ==

== ENCOUNTER 2025-02-23 10:29 | Outpatient (AMB) | payer OTHER, SELFPAY ==
--- OUTSIDE RECORDS SUMMARY | 2025-02-23 10:32 | XMS_ITS | Patient Health Record ---
[facility] Address [address] [facility] [place] [address] Care Team Providers Care Tactical/Mobile Watch Officer Name Role Phone Jassi Molina MD Primary Care Provider Leonel Evans Unavailable [phone] Allergies Allergen (clinical drug ingredient) Drug/Non Drug [...] Date Coverage End Date [employer] [address] [place] [address] [id number] Brady Arzate Self - patient is the insured Medical (General) History Medical History History ICD Code Arthritis Surgical History Surgery Date(Month/Year) L lymph node removed 11/12/21 arm surgery 2021
--- OUTSIDE RECORDS SUMMARY | 2025-02-23 10:32 | XMS_ITS | Clinical Summary ---
Author Organization [facility] Address [address] [place], [place] [id number] Phone Care Team Providers Care Superintendent Meters Name Role Phone Dandy Molina MD Primary [...] topic Medical Devices Not on file Insurance [facility] PASSPORT PPO Member Subscriber Plan / Payer (Ef fective 2019-Present) Name:Brady Arzate Relation to Subscriber:Self Name:Brady Arzate Payer ID:[id number] (NAIC) Type:PPO [address] [employer] PPO NA PPO [employer] [address] [address] [employer]ORT PPO [employer] PASSPORT PPO [place] [place] [address] [employer] PAS[employer] PPO [employer] PAS[employer]ORT PPO CIGNA PPO [employer] PASSPORT PPO Member Subscriber Plan / Payer (Ef fective 2019-Present) Name:Brady Arzate Relation to Subscriber:Self Name:Brady Arzate Payer ID:[id number] (NAIC) Type:PPO Address[address] P[address] PASSPORT PPO NA PPO Care Teams Superintendent Meters Relationship Specialty Start Date End Date Dandy Molina MD [address] [place] [id number] PCP - General Internal Medicine 03/09/21 Additional Source Comments The information contained in this document represents components of the legal health record. It is not the complete legal health record.[facility]
[2025-02-23 10:53] VITALS: BP 120/74; PULSE 94; RESP 16; TEMP 36.8; O2SAT 95; BMI 35.4
--- NOTE | 2025-02-23 10:53 | AM.OFFWIN_ITS ---
Intake Vital Signs 02/23/25 10:53 Height 5 ft 8 in Weight 233 lb BMI 35.4 BP 120/74 Blood Pressure Location Rt brachial Position Sitting Respiration 16 Pulse 94 Pulse Source Pulse Oximeter Temp 98.2 F Temp Source Oral Pulse Oximetry (%) 95 Oxygen Delivery Method Room Air Intake Visit Reasons: EP, back pain Intake Note: Pt is here today c/o Lt side of lower back pain, was seen recently for the same sx's Patient Tobacco Use Status: Never used Tobacco Allergies No Known Allergies Allergy (Verified 10/27/24 09:31) HPI HPI Comments History of Present Illness Details This is a 65-year-old male who presented to the walk-in clinic complaining of persistent low back pain. Patient was evaluated at the walk-in clinic on 02/06/2025 and 02/12/2025 for the same complaint. Patient was initially given anti-inflammatories and muscle relaxants without much relief. He was then re-evaluated and given a short course of prednisone as well as different muscle relaxants. Patient states that he has had some mild relief with this treatment. He denies any numbness/weakness/paresthesias of his lower extremities. He denies any saddle anesthesias. He denies any fevers or chills. He denies any urinary retention or incontinence. He denies any new trauma or injury since his last visit. [facility] Medical History Lumbago with sciatica Surgical History No pertinent past surgical history Family History Mother CHF (congestive heart failure) Father No problems noted. Son Substance abuse Social History Housing: Other Alcohol intake: never Patient Tobacco Use Status: Never used Tobacco e-Cigarette/Vaping Use: Never Used Current occupational exposures/hazards: No Cognitive needs: No Hearing needs: No Vision needs: No Review of Systems Const All systems reviewed & are unremarkable except as noted in HPI and below Reports no additional complaints Eyes Reports no additional complaints ENT Reports no additional complaints Card Reports no additional complaints Resp Reports no additional complaints GI Reports no additional complaints Reports no additional complaints Musc Reports no additional complaints Skin/Breast Reports system reviewed and no additional complaints, except as documented Neuro Reports no additional complaints Psych Reports no additional complaints Endo Reports no additional complaints Pierre/Lymph Reports no additional complaints Aller/Immun Reports no additional complaints Physical Exam Exam Exam: Vital signs reviewed. Constitutional: Non-toxic appearing. No acute distress. Well-developed and well-nourished. HEENT: Normocephalic and atraumatic. Skin: Warm and dry. No rashes or lesions noted. Neck: Full and painless range of motion. No cervical lymphadenopathy. Cardio: Regular rate and rhythm. Pulmonary: No respiratory distress. No accessory muscle usage. Musculoskeletal: There is mild tenderness to palpation and muscle spasm of the lumbar paraspinal musculature bilaterally, left greater than right. There is no midline or spinous process tenderness to palpation. Negative straight leg raise test bilaterally. Neuro: Alert and oriented x4. Cranial nerves 2-12 grossly intact. No focal deficits appreciated. Psych: Normal mood and affect. Vital Signs: Last Vital Signs Temp 98.2 F 02/23/25 10:53 Pulse 94 02/23/25 10:53 Resp 16 02/23/25 10:53 BP 120/74 02/23/25 10:53 Pulse Ox 95 02/23/25 10:53 Oxygen Delivery Method Room Air 02/23/25 10:53 BMI result Body Mass Index 35.4 Assessment & Plan Assessment & Plan (1) Lumbar paraspinal muscle spasm: Code(s): M62.830 - Muscle spasm of back (2) Low back pain: Code(s): M54.50 - Low back pain, unspecified Qualifiers: Back pain laterality: left Chronicity: acute Sciatica presence: without sciatica Qualified Code(s): M54.50 - Low back pain, unspecified Plan This is a 65-year-old male who presented to the walk-in clinic complaining of persistent low back pain. On physical examination, patient has mild tenderness to palpation and muscle spasm of the lumbar paraspinal musculature bilaterally. History and physical most consistent with lumbar paraspinal muscle spasm, no red flag symptoms. Patient was given a 5 day course of prednisone 40 mg daily to target acute inflammation but was educated that this is not a long-term treatment. I also recommended he continue supportive management such as rest/activity modification, ice/heat to the area, acetaminophen for breakthrough pain in addition to diclofenac 75 mg every 12 hours as needed, and o [id number] lidocaine patches. I also recommended a physical therapy evaluation and referral; however, patient declined at this time and states he would like to continue symptomatic treatment first. Patient was advised to follow-up here if his symptoms persist for re-evaluation for possible physical therapy referral. Patient verbalizes understanding and he is in agreement with the plan. Medications: New prednisone 40 mg (2 x 20 mg) PO DAILY 10 tabs 0RF Refilled diclofenac sodium 75 mg PO Q12H PRN 20 tabs 0RF pain back 10 days Coding Level of Care Code Est Pt Level 3 (55693) Diagnoses Lumbar paraspinal muscle spasm M62.830 Acute left-sided low back pain without sciatica M54.50 Back pain laterality: left Chronicity: acute Sciatica presence: without sciatica
== END 2025-02-23 12:04 | disposition home or self-care (01) ==
PROVIDERS: PCP Nurse Practitioner Family; Visit Provider Physician Assistant Medical
DX: M62.830 Muscle spasm of back (principal); M54.50 Low back pain, unspecified